=== PATIENT | female | born 1950 | race African-American/Black ===

== ENCOUNTER 2019-03-07 12:54 | Inpatient (IN) | payer MEDICARE, OTHER ==
[2019-03-07] MEDS ORDERED: MORPHINE SULFATE 10 MG/ML INJ IV ONE ×2 (13:37→16:17)
[2019-03-07] MEDS ORDERED: NORMAL SALINE 1000 ML 1,000 ML IV ONE ×2 (13:37→22:45)
[2019-03-07] MEDS ORDERED: ONDANSETRON HCL INJ/PF 4 MG/2 ML SDV IV ONE (13:37)
--- NOTE | 2019-03-07 13:43 | ER Document Report ---
ED Medical Screen (RME) - General Chief Complaint: High Blood Sugar Stated Complaint: BLOOD SUGAR ISSUES Time Seen by Provider: 03/07/19 13:33 Primary Care Provider: ALLEN OCONNOR MD [Primary Care Provider] - Follow up as needed Mode of Arrival: Wheelchair Information source: Patient, Relative TRAVEL OUTSIDE OF THE [place] IN LAST 30 DAYS: No - HPI Patient complains to provider of: ABDO PAIN, N/V, ELEVATED BGL Notes: 03/07/19 13:38 Patient here with family at the bedside. Patient is a type II diabetic. She takes glipizide. This morning she has been had nausea, vomiting, generalized abdominal pain. No diarrhea. She is been diaphoretic. Her blood sugars were elevated to 380s which is not normal for her. She denies any chest pain or shortness of breath. Exam Diaphoretic, no distress. Lung sounds clear and equal throughout. Heart sounds normal. No focal abdominal tenderness on limited triage abdominal exam. Plan CBC, CMP, venous gas, troponin, urine, EKG, saline lock, normal saline bolus, Zofran, morphine An initial examination was made on the patient as part of the triage process, and it was determined a more comprehensive evaluation was necessary. Initial labs were ordered and patient was transferred to another provider in the ED who assumed care and finished evaluation and plan. - Related Data Allergies/Adverse Reactions: No Known Allergies Allergy (Unverified 11/07/11 11:42) Past Medical History - Social History Frequency of alcohol use: None Drug Abuse: None - Past Medical History Cardiac Medical History: Reports: Hx Hypercholesterolemia, Hx Hypertension Denies: Hx Coronary Artery Disease, Hx Heart Attack Pulmonary Medical History: Denies: Hx Asthma, Hx Bronchitis, Hx COPD, Hx Pneumonia Neurological Medical History: Denies: Hx Cerebrovascular Accident, Hx Seizures Endocrine Medical History: Reports: Hx Diabetes Mellitus Type 2 Renal/ Medical History: Denies: Hx Peritoneal Dialysis Musculoskeltal Medical History: Denies Hx Arthritis Past Surgical History: Reports: Hx Tubal Ligation. Denies: Hx Hysterectomy - Immunizations Hx Diphtheria, Pertussis, Tetanus Vaccination: Yes Physical Exam - Vital signs Vitals: Temp Pulse Resp BP Pulse Ox 97.4 F 66 16 138/76 H 99 03/07/19 13:03 03/07/19 13:03 03/07/19 13:03 03/07/19 13:03 03/07/19 13:03 Course - Vital Signs Vital signs: Temp Pulse Resp BP Pulse Ox 97.4 F 66 16 138/76 H 99 03/07/19 13:03 03/07/19 13:03 03/07/19 13:03 03/07/19 13:03 03/07/19 13:03 Doctor's Discharge - Discharge Referrals: ALLEN OCONNOR MD [Primary Care Provider] - Follow up as needed
[2019-03-07 14:13] LABS: ABSOLUTE LYMPHOCYTES (AUTO) 1.1 10^3/uL (0.5-4.7); ABSOLUTE MONOCYTES (AUTO) 0.9 10^3/uL (0.1-1.4); ABSOLUTE NEUT (AUTO) 16.6 10^3/uL (1.7-8.2); BASOPHILS % (AUTO) 0.1 % (0-2); HEMATOCRIT 49.2 % (36.0-47.0); HEMOGLOBIN 15.9 g/dL (12.0-15.5); MEAN CORPUSCULAR HEMOGLOBIN 27.7 pg (27.0-33.4); MEAN CORPUSCULAR HGB CONC 32.3 g/dL (32.0-36.0); MEAN CORPUSCULAR VOLUME 86 fl (80-97); MONOCYTES % (AUTO) 4.6 % (3-13); RED BLOOD COUNT 5.73 10^6/uL (3.72-5.28); RED CELL DISTRIBUTION WIDTH 13.7 % (11.5-14.0); SEGMENTED NEUTROPHILS % (AUTO) 89.3 % (42-78); TOTAL CELLS COUNTED % (AUTO) 100 %; WHITE BLOOD COUNT 18.6 10^3/uL (4.0-10.5)
[2019-03-07 14:26] LABS: ALBUMIN 4.7 g/dL (3.5-5.0); ALKALINE PHOSPHATASE 212 U/L (38-126); ANION GAP 18 (5-19); BILIRUBIN,DIRECT 1.1 mg/dL (0.0-0.4); BILIRUBIN,TOTAL 1.3 mg/dL (0.2-1.3); BLOOD UREA NITROGEN 30 mg/dL (7-20); CALCIUM 10.6 mg/dL (8.4-10.2); CARBON DIOXIDE 21 mmol/L (22-30); CHLORIDE 103 mmol/L (98-107); POTASSIUM 4.7 mmol/L (3.6-5.0); SODIUM 141.9 mmol/L (137-145); TOTAL PROTEIN 8.4 g/dL (6.3-8.2)
[2019-03-07 14:33] LABS: PLATELET COUNT 314 10^3/uL (150-450)
[2019-03-07 15:09] LABS: ALANINE AMINOTRANSFERASE 1777 U/L (9-52); ASPARTATE AMINO TRANSFERASE 2318 U/L (14-36); LIPASE 30813.3 U/L (23-300)
[2019-03-07 15:10] LABS: GLUCOSE 439 mg/dL (75-110)
[2019-03-07 16:26] LABS: APPEARANCE,URINE CLOUDY; BILIRUBIN,URINE NEGATIVE (NEGATIVE); GLUCOSE, URINE >=500 mg/dL (NEGATIVE); KETONES,URINE NEGATIVE (NEGATIVE); LEUKOCYTE ESTERASE,URINE SMALL (NEGATIVE); NITRITE,URINE NEGATIVE (NEGATIVE); PROTEIN,URINE 100 mg/dL (NEGATIVE); URINE SPECIFIC GRAVITY 1.014; UROBILINOGEN,URINE NEGATIVE mg/dL (<2.0)
[2019-03-07 16:27] LABS: COLOR,URINE YELLOW
[2019-03-07 16:33] LABS: VENOUS BLOOD BASE EXCESS -7.6 mmol/L; VENOUS BLOOD HCO3 22.8 mmol/L (20-32)
[2019-03-07 16:38] LABS: VENOUS BLOOD PCO2 67.9 mmHg (35-63); VENOUS BLOOD PH 7.14 (7.30-7.42)
[2019-03-07] MEDS ORDERED: INSULIN REG, HUMAN 100 UNIT/ML 3 ML VIAL (PYX) IV ONE (16:45)
[2019-03-07] MEDS ORDERED: CEFTRIAXONE 1 GM/D5W RTU 1 GM/50 ML RTUPB IV ONE ×2 (16:49→19:00)
--- NOTE | 2019-03-07 18:04 | RADIOLOGY REPORT (SQ) ---
EXAM DESCRIPTION: U/S ABDOMEN LIMITED W/O DOP COMPLETED DATE/TIME: 03/07/2019 5:47 pm REASON FOR STUDY: RUQ pain, elevated lipase and LFTs COMPARISON: None. TECHNIQUE: Dynamic and static grayscale images acquired of the abdomen and recorded on PACS. Additio nal selected color Doppler and spectral images recorded. LIMITATIONS: None. FINDINGS: PANCREAS: No masses. Visualized pancreatic duct normal caliber. LIVER: No masses. Echotexture normal. LIVER VASCULATURE: Normal directional flow of the main portal vein and hepatic veins. GALLBLADDER: Nonshadowing gallstones versus moderate amount of endoluminal sludge. Increased gallbla dder wall thickness, 4-5 mm. No pericholecystic fluid. ULTRASOUND-DETECTED MCGUIRE'S SIGN: Negative. INTRAHEPATIC DUCTS AND COMMON DUCT: CBD and intrahepatic ducts normal caliber. No filling defects. INFERIOR VENA CAVA: Normal flow. AORTA: No aneurysm identified. RIGHT KIDNEY: Normal size. Normal echogenicity. No solid or suspicious masses. No hydronephros is. No calcifications. PERITONEAL AND RIGHT PLEURAL SPACE: No ascites or effusions. OTHER: No other significant findings. IMPRESSION: Nonshadowing gallstones versus moderate amount of endoluminal sludge. Increased gallbla dder wall thickness, 4-5 mm. Trace amount of fluid in Farrell's pouch. Consider surgical consultat ion. TECHNICAL DOCUMENTATION: JOB ID: [id number] [id number] 2010 [employer]- All Rights Reserved Reading location - IP/workstation name: [email or web address]
--- NOTE | 2019-03-07 18:26 | ER Document Report ---
ED General - General Chief Complaint: High Blood Sugar Stated Complaint: BLOOD SUGAR ISSUES Time Seen by Provider: 03/07/19 13:33 Primary Care Provider: ALLEN OCONNOR MD [Primary Care Provider] - Follow up as needed Mode of Arrival: Wheelchair Notes: Patient says her stomach has been hurting since early this morning. She is never had this before. Has been nauseated and today has vomited 4 times. No diarrhea. Has not noted any fever. No history of abdominal surgeries except for her tubes being tied. Does not drink alcohol. Patient is a [id number] diabetic on glipizide twice a day. Appears to be in pain. Received 5 mg of morphine when first arrived. TRAVEL OUTSIDE OF THE [place] IN LAST 30 DAYS: No - Related Data Allergies/Adverse Reactions: No Known Allergies Allergy (Unverified 11/07/11 11:42) Past Medical History - General Information source: Patient, Relative - Social History Smoking Status: Never Smoker Frequency of alcohol use: None Drug Abuse: None Family History: Reviewed & Not Pertinent Patient has suicidal ideation: No Patient has homicidal ideation: No - Past Medical History Cardiac Medical History: Reports: Hx Hypercholesterolemia, Hx Hypertension Endocrine Medical History: Reports: Hx Diabetes Mellitus Type 2 GI Medical History: Denies: Hx Pancreatitis Musculoskeletal Medical History: Denies Hx Arthritis Past Surgical History: Reports: Hx Tubal Ligation. Denies: Hx Hysterectomy - Immunizations Hx Diphtheria, Pertussis, Tetanus Vaccination: Yes Review of Systems - Review of Systems Notes: REVIEW OF SYSTEMS: CONSTITUTIONAL : Denies fever. EENT: Denies eye, ear, nose or mouth or throat pain or other symptoms. CARDIOVASCULAR: Denies chest pain. RESPIRATORY: Denies cough, chest congestion, or shortness of breath. GASTROINTESTINAL: See HPI. GENITOURINARY: Denies difficulty or painful urinating, urinary frequency, blood in urine. MUSCULOSKELETAL: Denies back or neck pain. Denies joint pain or swelling. SKIN: Denies rash or skin lesions. NEUROLOGICAL: Denies LOC or altered mental status. Denies headache. Denies sensory loss or motor deficits. ALL OTHER SYSTEMS REVIEWED AND NEGATIVE. Physical Exam - Vital signs Vitals: Temp Pulse Resp BP Pulse Ox 97.4 F 66 16 138/76 H 99 03/07/19 13:03 03/07/19 13:03/07/19 13:03/07/19 13:03 03/07/19 13:03 Interpretation: Normal Notes: PHYSICAL EXAMINATION: GENERAL: Appears to be in pain. HEAD: Atraumatic, normocephalic. EYES: Pupils equal round and reactive to light, extraocular movements intact. ENT: oropharynx clear without exudates. Moist mucous membranes. NECK: Normal range of motion, supple. LUNGS: Breath sounds clear and equal bilaterally. HEART: Regular rate and rhythm without murmurs. ABDOMEN: Extremely tender in the epigastrium and right upper quadrant of the abdomen. Some guarding to press in that area. No rebound. BACK: No tenderness throughout entire back. EXTREMITIES: Normal range of motion without pain. NEUROLOGICAL: Normal speech, normal gait. Normal sensory, motor, and reflex exams. Awake, alert, and oriented x3. Cranial nerves normal. PSYCH: Normal mood, normal affect. SKIN: Warm, dry, no rashes. Course - Re-evaluation Re-evalutation: 03/07/19 18:28 Lab results show a white count of 18,000. Lipase 30,000. LFTs elevated, but bilirubin only 1.3. Venous pH 7. 1 4 with PCO2 of 67. Patient was given 5 units of insulin IV. Pain medications were ordered. Rocephin 1 g IV was ordered. Spoke with surgeon on-call, Dr. Martin, who said that he would be willing to consult on the patient if medicine will admit her. I then spoke to , 1 of her hospitalist, who will admit the patient to ICU. 03/07/19 18:31 - Vital Signs Vital signs: Temp Pulse Resp BP Pulse Ox 97.4 F 66 16 138/76 H 99 03/07/19 13:03 03/07/19 13:03 03/07/19 13:03 03/07/19 13:03 03/07/19 13:03 - Laboratory Result Diagrams: 03/07/19 13:52 03/07/19 13:52 Laboratory results interpreted by me: 03/07/19 03/07/19 03/07/19 13:52 13:52 13:55 WBC 18.6 H RBC 5.73 H Hgb 15.9 H Hct 49.2 H Seg Neutrophils % 89.3 H Lymphocytes % 6.0 L Absolute Neutrophils 16.6 H VBG pH VBG pCO2 Carbon Dioxide 21 L BUN 30 H Creatinine 1.37 H Est GFR ( Amer) 47 L Est GFR (Non-Af Amer) 38 L Glucose 439 H* POC Glucose 378 H Calcium 10.6 H Direct Bilirubin 1.1 H AST 2318 H ALT 1777 H Alkaline Phosphatase 212 H Total Protein 8.4 H Lipase 62594.3 H Urine Protein Urine Glucose (UA) Urine Blood Ur Leukocyte Esterase 03/07/19 03/07/19 15:55 16:22 WBC RBC Hgb Hct Seg Neutrophils % Lymphocytes % Absolute Neutrophils VBG pH 7.14 L* VBG pCO2 67.9 H* Carbon Dioxide BUN Creatinine Est GFR ( Amer) Est GFR (Non-Af Amer) Glucose POC Glucose Calcium Direct Bilirubin AST ALT Alkaline Phosphatase Total Protein Lipase Urine Protein 100 H Urine Glucose (UA) >=500 H Urine Blood SMALL H Ur Leukocyte Esterase SMALL H Discharge - Discharge Clinical Impression: Pancreatitis, Gallbladder disease, Type 2 diabetes mellitus Condition: Stable Disposition: ADMITTED INPATIENT Admitting Provider: Kim (Hospitalist) Unit Admitted: ICU Referrals: ALLEN OCONNOR MD [Primary Care Provider] - Follow up as needed
[2019-03-07] MEDS ORDERED: NORMAL SALINE 1000 ML 1,000 ML IV PRN (18:42)
[2019-03-07] MEDS ORDERED: ACETAMINOPHEN 325 MG TABLET PO PRN (18:42)
[2019-03-07] MEDS ORDERED: ONDANSETRON HCL INJ/PF 4 MG/2 ML SDV IV PRN (18:42)
--- NOTE | 2019-03-07 18:48 | PDOC CONSULTATION ---
Consultation Consult Date: 03/07/19 Attending physician:: REYMUNDO SALAZAR Consult reason:: pancreatitis History of Present Illness Admission Date/PCP: ALLEN OCONNOR History of Present Illness: MALINI QUEVEDO is a 68 year old female Patient says her stomach has been hurting since early this morning. She is never had this before. Does not drink alcohol. Has been nauseated and today has vomited 4 times. No diarrhea. Has not noted any fever. No history of abdominal surgeries except for her tubes being tied. Patient is a bsc-vqtxgmq-[id number] diabetic on glipizide twice a day. Past Medical History Cardiac Medical History: Reports: Hyperlipidema, Hypertension Denies: Coronary Artery Disease, Myocardial Infarction Pulmonary Medical History: Denies: Asthma, Bronchitis, Chronic Obstructive Pulmonary Disease (COPD), Pneumonia Neurological Medical History: Denies: Seizures Endocrine Medical History: Reports: Diabetes Mellitus Type 2 Musculoskeltal Medical History: Denies: Arthritis Hematology: Denies: Anemia Past Surgical History Past Surgical History: Reports: Tubal Ligation Denies: Hysterectomy Social History Smoking Status: Never Smoker Family History Parental Family History Reviewed: No Children Family History Reviewed: NA Sibling(s) Family History Reviewed.: NA Medication/Allergy Home Medications: Atenolol-Chlorthal 50-25 Tb 11/07/11 Metformin HCl 11/07/11 Pravastatin Sodium [Pravachol] 11/07/11 Allergies/Adverse Reactions: No Known Allergies Allergy (Unverified 11/07/11 11:42) Review of Systems Constitutional: ABSENT: chills, fever(s), headache(s), weight gain, weight loss Eyes: ABSENT: visual disturbances Ears: ABSENT: hearing changes Nose, Mouth, and Throat: ABSENT: as per HPI, headache(s), mouth pain, sore throat, vertigo, other Breasts: PRESENT: other - no masses Cardiovascular: PRESENT: other - no chest pain, Respiratory: ABSENT: cough, hemoptysis Gastrointestinal: PRESENT: other - marked tenderness in epigastrium, without radiation Genitourinary: ABSENT: dysuria, hematuria Musculoskeletal: ABSENT: joint swelling Integumentary: ABSENT: rash, wounds Neurological: ABSENT: abnormal gait, abnormal speech, confusion, dizziness, focal weakness, syncope Psychiatric: ABSENT: anxiety, depression, homidical ideation, suicidal ideation Endocrine: PRESENT: other - no cold or heat intolerance, type 2 diabetes Physical Exam Vital Signs: Temp Pulse Resp BP Pulse Ox 97.4 F 66 16 138/76 H 99 03/07/19 13:03 03/07/19 13:03 03/07/19 13:03 03/07/19 13:03 03/07/19 13:03 Intake & Output 03/06/19 03/07/19 03/08/19 06:59 06:59 06:59 Weight 73.6 kg General appearance: PRESENT: mild distress Head exam: PRESENT: atraumatic Eye exam: PRESENT: EOMI Ear exam: PRESENT: normal external ear exam Mouth exam: PRESENT: dry mucosa, moist Neck exam: PRESENT: full ROM Respiratory exam: PRESENT: clear to auscultation marce Cardiovascular exam: PRESENT: RRR Pulses: PRESENT: normal radial pulses, normal femoral pulses Vascular exam: PRESENT: normal capillary refill GI/Abdominal exam: PRESENT: tenderness - mid abd, epigastrium Rectal exam: PRESENT: deferred Extremities exam: PRESENT: full ROM Musculoskeletal exam: PRESENT: full ROM Neurological exam: PRESENT: alert, awake, oriented to person, oriented to place, oriented to time Psychiatric exam: PRESENT: anxious Skin exam: PRESENT: dry Results Laboratory Results: 03/07/19 13:52 03/07/19 13:52 03/07/19 03/07/19 03/07/19 13:52 13:52 15:11 WBC 18.6 H RBC 5.73 H Hgb 15.9 H Hct 49.2 H MCV 86 MCH 27.7 MCHC 32.3 RDW 13.7 Plt Count 314 Seg Neutrophils % 89.3 H Lymphocytes % 6.0 L Monocytes % 4.6 Eosinophils % 0.0 Basophils % 0.1 Absolute Neutrophils 16.6 H Absolute Lymphocytes 1.1 Absolute Monocytes 0.9 Absolute Eosinophils 0.0 Absolute Basophils 0.0 VBG pH Cancelled VBG pCO2 Cancelled VBG HCO3 Cancelled VBG Base Excess Cancelled Sodium 141.9 Potassium 4.7 Chloride 103 Carbon Dioxide 21 L Anion Gap 18 BUN 30 H Creatinine 1.37 H Est GFR ( Amer) 47 L Est GFR (Non-Af Amer) 38 L Glucose 439 H* Calcium 10.6 H Total Bilirubin 1.3 AST 2318 H ALT 1777 H Alkaline Phosphatase 212 H Total Protein 8.4 H Albumin 4.7 Lipase 06943.3 H Urine Color Urine Appearance Urine pH Ur Specific [place] Urine Protein Urine Glucose (UA) Urine Ketones Urine Blood Urine Nitrite Ur Leukocyte Esterase Urine WBC (Auto) Urine RBC (Auto) 03/07/19 03/07/19 15:55 16:22 WBC RBC Hgb Hct MCV MCH MCHC RDW Plt Count Seg Neutrophils % Lymphocytes % Monocytes % Eosinophils % Basophils % Absolute Neutrophils Absolute Lymphocytes Absolute Monocytes Absolute Eosinophils Absolute Basophils VBG pH 7.14 L* VBG pCO2 67.9 H* VBG HCO3 22.8 VBG Base Excess -7.6 Sodium Potassium Chloride Carbon Dioxide Anion Gap BUN Creatinine Est GFR ( Amer) Est GFR (Non-Af Amer) Glucose Calcium Total Bilirubin AST ALT Alkaline Phosphatase Total Protein Albumin Lipase Urine Color YELLOW Urine Appearance CLOUDY Urine pH 5.0 Ur Specific [place] 1.014 Urine Protein 100 H Urine Glucose (UA) >=500 H Urine Ketones NEGATIVE Urine Blood SMALL H Urine Nitrite NEGATIVE Ur Leukocyte Esterase SMALL H Urine WBC (Auto) 19 Urine RBC (Auto) 2 03/07/19 13:52 Troponin I < 0.012 Impressions: Abdomen Ultrasound 03/07/19 16:17 IMPRESSION: Nonshadowing gallstones versus moderate amount of endoluminal sludge. Increased gallbladder wall thickness, 4-5 mm. Trace amount of fluid in Farrell's pouch. Consider surgical consultation. 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 - Plan Summary Plan Summary: 68 y/o female with known gallstones, type 2 diabetes on glipizide, presents iwth acute onset epigastrium pain, nausea, vomiting ultrasound + for gallstones elevated lft's elevated lipase acidotic plan admit per medicine to icu iv resuscitation, control of blood glucose. surgery to follow.
[2019-03-07] MEDS ORDERED: DEXTROSE 40% GEL 15 GM TUBE PO PRN ×2 (18:50)
[2019-03-07] MEDS ORDERED: DEXTROSE 50%-WATER 25 GM/50 ML DISP.SYRIN IV PRN ×2 (18:50)
[2019-03-07] MEDS ORDERED: GLUCAGON,HUMAN RECOMB 1 MG INJ IM PRN (18:50)
[2019-03-07] MEDS ORDERED: MORPHINE SULFATE 10 MG/ML INJ IV PRN (18:51)
--- NOTE | 2019-03-07 18:52 | EKG REPORT ---
SEVERITY:- ABNORMAL ECG - SINUS RHYTHM LEFT ATRIAL ABNORMALITY : Confirmed by: Tod Wilson 07-Mar-2019 18:51:36
[2019-03-07] MEDS ORDERED: ERTAPENEM SODIUM INJ 1 GM VIAL IV SCH (19:00)
--- NOTE | 2019-03-07 19:05 | PDOC H&P ---
History of Present Illness Admission Date/PCP: 03/07/19 18:51 ALLEN OCONNOR Patient complains of: Abdominal pain associated with nausea and vomiting from this morning History of Present Illness: MALINI QUEVEDO is a 68 year old female with history of diabetes mellitus type 2, hypertension, hyperlipidemia came to the emergency room with complaints of sudden onset of abdominal pain associated with nausea and vomiting's from this morning. Patient woke up around 7 AM with sudden onset of abdominal pain nausea and vomitings took some water right went back to bed pain is persisting associated with vomiting's 4 times bilious vomiting she called her daughter alex ound 9 AM day and thereafter to the hospital for further evaluation. Patient is complaining of chills Reiger's denies any fever. Had a bowel movement this morning. Denies any cough cold or chest pains. Denies any shortness of breath. Denies any rashes. Denies any headaches dizziness or lightheadedness. Abdominal pain is 10 x 10 at the time of presentation. no Aggravating factors no relieving factors. Past Medical History Cardiac Medical History: Reports: Hyperlipidema, Hypertension Denies: Coronary Artery Disease, Myocardial Infarction Pulmonary Medical History: Denies: Asthma, Bronchitis, Chronic Obstructive Pulmonary Disease (COPD), Pneumonia Neurological Medical History: Denies: Seizures Endocrine Medical History: Reports: Diabetes Mellitus Type 2 Musculoskeltal Medical History: Denies: Arthritis Hematology: Denies: Anemia Past Surgical History Past Surgical History: Reports: Tubal Ligation Denies: Hysterectomy Social History Smoking Status: Never Smoker - Advance Directive Resuscitation Status: Full Code Family History Family History: Reviewed & Not Pertinent Parental Family History Reviewed: Yes - Family history of hypertension and diabetes mellitus Children Family History Reviewed: Yes Sibling(s) Family History Reviewed.: Yes Medication/Allergy Home Medications: Atenolol-Chlorthal 50-25 Tb 11/07/11 Metformin HCl 11/07/11 Pravastatin Sodium [Pravachol] 11/07/11 Allergies/Adverse Reactions: No Known Allergies Allergy (Unverified 11/07/11 11:42) Review of Systems Constitutional: PRESENT: chills, fatigue, weakness, other - Reiger's. ABSENT: fever(s), headache(s) Eyes: ABSENT: visual disturbances Ears: ABSENT: hearing changes Respiratory: ABSENT: cough, hemoptysis Gastrointestinal: PRESENT: abdominal pain, nausea, vomiting, other - Pain especially in the right upper quadrant and stomach area Genitourinary: ABSENT: dysuria, hematuria Neurological: ABSENT: abnormal gait, abnormal speech, confusion, dizziness, focal weakness, syncope Psychiatric: ABSENT: anxiety, depression, homidical ideation, suicidal ideation Physical Exam Vital Signs: Temp Pulse Resp BP Pulse Ox 97.4 F 66 16 138/76 H 99 03/07/19 13:03 03/07/19 13:03 03/07/19 13:03 03/07/19 13:03 03/07/19 13:03 Intake & Output 03/06/19 03/07/19 03/08/19 06:59 06:59 06:59 Weight 73.6 kg General appearance: PRESENT: obese, severe distress Head exam: PRESENT: atraumatic Eye exam: PRESENT: PERRLA Mouth exam: PRESENT: dry mucosa Teeth exam: PRESENT: poor dentation Neck exam: ABSENT: carotid bruit, JVD, lymphadenopathy, thyromegaly Respiratory exam: PRESENT: clear to auscultation marce. ABSENT: rales, rhonchi, wheezes Cardiovascular exam: PRESENT: tachycardia GI/Abdominal exam: PRESENT: other - On examination patient is complaining of pain on drip upper quadrant on gentle palpation and is complaining of severe pain on gentle palpation in the epigastric area. Sounds are sluggish. Rectal exam: PRESENT: deferred Extremities exam: PRESENT: full ROM. ABSENT: calf tenderness, clubbing, pedal edema Neurological exam: PRESENT: alert, awake, oriented to person, oriented to place, oriented to time, oriented to situation, CN II-XII grossly intact. ABSENT: motor sensory deficit Psychiatric exam: PRESENT: appropriate affect, normal mood. ABSENT: homicidal ideation, suicidal ideation Results Laboratory Results: 03/07/19 13:52 03/07/19 13:52 03/07/19 03/07/19 03/07/19 13:52 13:52 15:11 WBC 18.6 H RBC 5.73 H Hgb 15.9 H Hct 49.2 H MCV 86 MCH 27.7 MCHC 32.3 RDW 13.7 Plt Count 314 Seg Neutrophils % 89.3 H Lymphocytes % 6.0 L Monocytes % 4.6 Eosinophils % 0.0 Basophils % 0.1 Absolute Neutrophils 16.6 H Absolute Lymphocytes 1.1 Absolute Monocytes 0.9 Absolute Eosinophils 0.0 Absolute Basophils 0.0 VBG pH Cancelled VBG pCO2 Cancelled VBG HCO3 Cancelled VBG Base Excess Cancelled Sodium 141.9 Potassium 4.7 Chloride 103 Carbon Dioxide 21 L Anion Gap 18 BUN 30 H Creatinine 1.37 H Est GFR ( Amer) 47 L Est GFR (Non-Af Amer) 38 L Glucose 439 H* Calcium 10.6 H Total Bilirubin 1.3 AST 2318 H ALT 1777 H Alkaline Phosphatase 212 H Total Protein 8.4 H Albumin 4.7 Lipase 94213.3 H Urine Color Urine Appearance Urine pH Ur Specific [place] Urine Protein Urine Glucose (UA) Urine Ketones Urine Blood Urine Nitrite Ur Leukocyte Esterase Urine WBC (Auto) Urine RBC (Auto) 03/07/19 03/07/19 15:55 16:22 WBC RBC Hgb Hct MCV MCH MCHC RDW Plt Count Seg Neutrophils % Lymphocytes % Monocytes % Eosinophils % Basophils % Absolute Neutrophils Absolute Lymphocytes Absolute Monocytes Absolute Eosinophils Absolute Basophils VBG pH 7.14 L* VBG pCO2 67.9 H* VBG HCO3 22.8 VBG Base Excess -7.6 Sodium Potassium Chloride Carbon Dioxide Anion Gap BUN Creatinine Est GFR ( Amer) Est GFR (Non-Af Amer) Glucose Calcium Total Bilirubin AST ALT Alkaline Phosphatase Total Protein Albumin Lipase Urine Color YELLOW Urine Appearance CLOUDY Urine pH 5.0 Ur Specific [place] 1.014 Urine Protein 100 H Urine Glucose (UA) >=500 H Urine Ketones NEGATIVE Urine Blood SMALL H Urine Nitrite NEGATIVE Ur Leukocyte Esterase SMALL H Urine WBC (Auto) 19 Urine RBC (Auto) 2 03/07/19 13:52 Troponin I < 0.012 Impressions: Abdomen Ultrasound 03/07/19 16:17 IMPRESSION: Nonshadowing gallstones versus moderate amount of endoluminal sludge. Increased gallbladder wall thickness, 4-5 mm. Trace amount of fluid in Farrell's pouch. Consider surgical consultation. Assessment and Plan - Diagnosis (1) Gallbladder disease Is this a current diagnosis for this admission?: Yes Plan: 03/07/2019-patient is going to be admitted to the ICU for gallbladder disease. She is going to be n.p.o. Surgical consult was done. Blood cultures urine cultures are requested. Started on Invanz 1 g IV daily. IV morphine 2 mg every 4 hours as needed initiated. GI prophylaxis was started. DVT prophylaxis on hold because of possible surgery. Start an IV Zofran 4 mg every 6 hours as needed for nausea vomiting's. On oxygen 2 L nasal cannula. To do the ABG. Chest x-ray and CT abdomen and pelvis with contrast was requested. CODE STATUS is full code. His WBC count is 18,000 with sweats chills and Reiger's. Started on antibiotic therapy septic work-up was requested. (2) Pancreatitis Qualifiers: Chronicity: acute Pancreatitis type: biliary Acute pancreatitis complication: unspecified Qualified Code(s): K85.10 - Biliary acute pancreatitis without necrosis or infection Is this a current diagnosis for this admission?: Yes Plan: 03/07/2019-patient came in with severe abdominal pain especially in the epigastric region denies any radiation to the back lipase is more than 30,000. She has also elevated LFTs. u/s of the gallbladder was done which indicates thickening of the gallbladder wall and gallstones. Surgical consult was requested plan to do the CT abdomen pelvis IV contrast. Chest x-ray was requested. to repeat the lipase levels tomorrow morning. (3) Type 2 diabetes mellitus Qualifiers: Diabetes mellitus [facility] insulin use: with terminal gauger supervisor use Diabetes mellitus complication status: without complication Qualified Code(s): E11.9 - Type 2 diabetes mellitus without complications; Z79.4 - terminal gauger supervisor (current) use of insulin Is this a current diagnosis for this admission?: No Plan: 03/07/2019-patient has history of type 2 diabetes mellitus. Taking glipizide at home. She is used to take metformin but she is not taking it anymore. To check blood sugars every 6 hours with prior insulin sliding scale every 6 hours. Hemoglobin A1c in the morning. (4) HTN (hypertension) Is this a current diagnosis for this admission?: No Plan: 03/07/2019-patient has history of hypertension blood pressure is 138/70. Patient is take lisinopril at home which was on hold at this time. (5) Acidosis Is this a current diagnosis for this admission?: Yes Plan: 03/07/2019-80 VBG was done in the emergency room pH is 7.14/PCO2 67. Acidosis may be secondary to uncontrolled diabetes mellitus. Or may be secondary to pain. ABG was requested, chest x-ray was requested, started on oxygen 2 L nasal cannula.
[2019-03-07] MEDS ORDERED: CEFTRIAXONE 1 GM/D5W RTU 1 GM/50 ML RTUPB IV SCH (20:00)
[2019-03-07 20:10] LABS: CREATINE KINASE MB 0.78 ng/mL (<4.55)
[2019-03-07 20:13] LABS: TROPONIN I < 0.012 ng/mL
--- NOTE | 2019-03-07 20:21 | RADIOLOGY REPORT (SQ) ---
EXAM DESCRIPTION: XR CHEST 1 VIEW COMPLETED DATE/TME: 03/07/2019 00:00 CLINICAL HISTORY: resp distress COMPARISON: None FINDINGS: Cardiac silhouette is within normal limits. Linear opacities at the lower lungs may represent scar versus subsegmental atelectasis. EKG leads project over the chest. There is no focal parenchymal or pleural disease. There is no acute osseous process visualized. IMPRESSION: Linear opacities at the lower lungs may represent scar versus subsegmental atelectasis.
--- NOTE | 2019-03-07 20:27 | RADIOLOGY REPORT (SQ) ---
EXAM DESCRIPTION: CT ABDOMEN PELVIS WITH IV CONTRAST COMPLETED DATE/TME: 03/07/2019 00:00 CLINICAL HISTORY: abd pain COMPARISON: None Available TECHNIQUE: Contiguous axial images of the abdomen and pelvis were obtained followed by reconstruction images. This exam was performed according to our departmental dose-optimization program, which includes automated exposure control, adjustment of the mA and/or kV according to patient size and/or use of iterative reconstruction technique. FINDINGS: Enlarged pancreas with mild stranding of the adjacent fat and fluid at the anterior pararenal space bilaterally compatible with acute pancreatitis changes. Focal fluid collection inferior to the pancreas measuring approximately 4.3 cm may represent a pseudocyst. There is atherosclerosis. There is free fluid in the pelvis. Calcifications within the pelvis may represent phleboliths. Linear opacities within the lungs may represent scar versus subsegmental atelectasis. There are gallstones within the gallbladder. The gallbladder is partially contracted. Common bile duct is not dilated. No discrete calcification is noted within the common bile duct. There is a small right renal cyst. The liver, spleen and kidneys are within normal limits. There is no hydronephrosis or renal stones. Adrenal glands are within normal limits. Aorta is of normal caliber and tapering. There There is no bowel obstruction. The appendix is within normal limits. There is no pericecal inflammation. IMPRESSION: Findings compatible with acute pancreatitis. Cholelithiasis.
[2019-03-07] MEDS: PANTOPRAZOLE SODIUM 40 MG VIAL IV SCH (20:42)
[2019-03-07 21:30] LABS: ARTERIAL BLOOD BASE EXCESS -9.4 mmol/L; ARTERIAL BLOOD H2CO3 1.07 mmol/L (1.05-1.35); ARTERIAL BLOOD HCO3 16.3 mmol/L (20-24); ARTERIAL BLOOD O2 SATURATION 94.3 % (94-98); ARTERIAL BLOOD PCO2 35.5 mmHg (35-45); ARTERIAL BLOOD PH 7.28 (7.35-7.45); ARTERIAL BLOOD PO2 78.6 mmHg (80-100); ARTERIAL BLOOD TOTAL CO2 17.4 mmol/L (21-25)
[2019-03-07 21:33] LABS: ARTERIAL BLOOD FIO2 21%
[2019-03-07] MEDS ORDERED: MORPHINE SULFATE 10 MG/ML INJ ONE (22:32)
[2019-03-07] MEDS ORDERED: INSULIN REG, HUMAN 100 UNIT/ML 3 ML VIAL SUBCUT ONE (22:45)
[2019-03-07] MEDS: MORPHINE SULFATE 10 MG/ML INJ IV PRN (22:58)
[2019-03-07] MEDS ORDERED: INSULIN REG, HUMAN 100 UNIT/ML 3 ML VIAL (PYX) ONE (23:05)
[2019-03-08] MEDS ORDERED: INSULIN REG, HUMAN 100 UNIT/ML 3 ML VIAL (PYX) SUBCUT SCH
[2019-03-08] MEDS: ERTAPENEM SODIUM 1 GM in NORMAL SALINE 50 ML IV SCH ×2 (00:04→23:10)
[2019-03-08] MEDS ORDERED: INSULIN REG, HUMAN 100 UNIT/ML 3 ML VIAL (PYX) SUBCUT ONE (01:00)
[2019-03-08 01:57] LABS: CREATINE KINASE MB 1.34 ng/mL (<4.55); TROPONIN I 0.034 ng/mL
[2019-03-08] MEDS: METOPROLOL TARTRATE PF/INJ 5 MG/5 ML SDV IV SCH ×2 (03:09→11:24)
--- NOTE | 2019-03-08 06:04 | PDOC PROGRESS REPORT ---
Subjective Progress Note for:: 03/08/19 Subjective:: feels a bit better less abd pain Reason For Visit: BLOOD SUGAR ISSUES Physical Exam Vital Signs: Temp Pulse Resp BP Pulse Ox 96.6 F L 155 H 26 H 130/78 H 96 03/07/19 21:50 03/07/19 21:50 03/08/19 02:10 03/08/19 02:10 03/08/19 02:10 Intake & Output 03/06/19 03/07/19 03/08/19 06:59 06:59 06:59 Intake Total 1100 Output Total 550 Balance 550 Weight 72.2 kg General appearance: PRESENT: no acute distress Head exam: PRESENT: normocephalic Eye exam: PRESENT: EOMI Mouth exam: PRESENT: moist Neck exam: PRESENT: full ROM Respiratory exam: PRESENT: clear to auscultation marce Cardiovascular exam: PRESENT: RRR, tachycardia Pulses: PRESENT: normal radial pulses, normal femoral pulses Vascular exam: PRESENT: normal capillary refill GI/Abdominal exam: PRESENT: hypoactive bowel sounds Rectal exam: PRESENT: deferred Extremities exam: PRESENT: +1 edema Musculoskeletal exam: PRESENT: full ROM Neurological exam: PRESENT: alert, awake, oriented to person Psychiatric exam: PRESENT: appropriate affect Results Laboratory Results: 03/07/19 13:52 03/07/19 13:52 03/07/19 03/07/19 03/07/19 13:52 13:52 15:11 WBC 18.6 H RBC 5.73 H Hgb 15.9 H Hct 49.2 H MCV 86 MCH 27.7 MCHC 32.3 RDW 13.7 Plt Count 314 Seg Neutrophils % 89.3 H Lymphocytes % 6.0 L Monocytes % 4.6 Eosinophils % 0.0 Basophils % 0.1 Absolute Neutrophils 16.6 H Absolute Lymphocytes 1.1 Absolute Monocytes 0.9 Absolute Eosinophils 0.0 Absolute Basophils 0.0 Carbonic Acid HCO3/H2CO3 Ratio ABG pH ABG pCO2 ABG pO2 ABG HCO3 ABG O2 Saturation ABG Base Excess VBG pH Cancelled VBG pCO2 Cancelled VBG HCO3 Cancelled VBG Base Excess Cancelled FiO2 Sodium 141.9 Potassium 4.7 Chloride 103 Carbon Dioxide 21 L Anion Gap 18 BUN 30 H Creatinine 1.37 H Est GFR ( Amer) 47 L Est GFR (Non-Af Amer) 38 L Glucose 439 H* Lactic Acid Calcium 10.6 H Total Bilirubin 1.3 AST 2318 H ALT 1777 H Alkaline Phosphatase 212 H Total Protein 8.4 H Albumin 4.7 Lipase 91911.3 H Urine Color Urine Appearance Urine pH Ur Specific [place] Urine Protein Urine Glucose (UA) Urine Ketones Urine Blood Urine Nitrite Ur Leukocyte Esterase Urine WBC (Auto) Urine RBC (Auto) 03/07/19 03/07/19 03/07/19 15:55 16:22 19:19 WBC RBC Hgb Hct MCV MCH MCHC RDW Plt Count Seg Neutrophils % Lymphocytes % Monocytes % Eosinophils % Basophils % Absolute Neutrophils Absolute Lymphocytes Absolute Monocytes Absolute Eosinophils Absolute Basophils Carbonic Acid HCO3/H2CO3 Ratio ABG pH ABG pCO2 ABG pO2 ABG HCO3 ABG O2 Saturation ABG Base Excess VBG pH 7.14 L* VBG pCO2 67.9 H* VBG HCO3 22.8 VBG Base Excess -7.6 FiO2 Sodium Potassium Chloride Carbon Dioxide Anion Gap BUN Creatinine Est GFR ( Amer) Est GFR (Non-Af Amer) Glucose Lactic Acid 7.0 H Calcium Total Bilirubin AST ALT Alkaline Phosphatase Total Protein Albumin Lipase Urine Color YELLOW Urine Appearance CLOUDY Urine pH 5.0 Ur Specific [place] 1.014 Urine Protein 100 H Urine Glucose (UA) >=500 H Urine Ketones NEGATIVE Urine Blood SMALL H Urine Nitrite NEGATIVE Ur Leukocyte Esterase SMALL H Urine WBC (Auto) 19 Urine RBC (Auto) 2 03/07/19 21:19 WBC RBC Hgb Hct MCV MCH MCHC RDW Plt Count Seg Neutrophils % Lymphocytes % Monocytes % Eosinophils % Basophils % Absolute Neutrophils Absolute Lymphocytes Absolute Monocytes Absolute Eosinophils Absolute Basophils Carbonic Acid 1.07 HCO3/H2CO3 Ratio 15:1 ABG pH 7.28 L ABG pCO2 35.5 ABG pO2 78.6 L ABG HCO3 16.3 L ABG O2 Saturation 94.3 ABG Base Excess -9.4 VBG pH VBG pCO2 VBG HCO3 VBG Base Excess FiO2 21% Sodium Potassium Chloride Carbon Dioxide Anion Gap BUN Creatinine Est GFR ( Amer) Est GFR (Non-Af Amer) Glucose Lactic Acid Calcium Total Bilirubin AST ALT Alkaline Phosphatase Total Protein Albumin Lipase Urine Color Urine Appearance Urine pH Ur Specific [place] Urine Protein Urine Glucose (UA) Urine Ketones Urine Blood Urine Nitrite Ur Leukocyte Esterase Urine WBC (Auto) Urine RBC (Auto) 03/07/19 03/07/19 03/07/19 13:52 19:19 19:19 Creatine Kinase 87 CK-MB (CK-2) 0.78 Troponin I < 0.012 < 0.012 03/08/19 03/08/19 01:22 01:22 Creatine Kinase 94 CK-MB (CK-2) 1.34 Troponin I 0.034 Impressions: Abdomen/Pelvis CT 03/07/19 00:00 IMPRESSION: Findings compatible with acute pancreatitis. Cholelithiasis. Chest X-Ray 03/07/19 00:00 IMPRESSION: Linear opacities at the lower lungs may represent scar versus subsegmental atelectasis. Abdomen Ultrasound 03/07/19 16:17 IMPRESSION: Nonshadowing gallstones versus moderate amount of endoluminal sludge. Increased gallbladder wall thickness, 4-5 mm. Trace amount of fluid in Farrell's pouch. Consider surgical consultation. Assessment & Plan - Diagnosis (1) Gallbladder disease Is this a current diagnosis for this admission?: Yes (2) Pancreatitis Qualifiers: Chronicity: acute Pancreatitis type: biliary Acute pancreatitis complicat ion: unspecified Qualified Code(s): K85.10 - Biliary acute pancreatitis without necrosis or infection Is this a current diagnosis for this admission?: Yes (3) Type 2 diabetes mellitus Qualifiers: Diabetes mellitus [facility] insulin use: with fci use Diabetes mellitus complication status: without complication Qualified Code(s): E11.9 - Type 2 diabetes mellitus without complications; Z79.4 - half-way (current) use of insulin Is this a current diagnosis for this admission?: No - Plan Summary Plan Summary: somewhat improved since admission last pm has received iv hydration 'ns at 125cc/hr and 1 liter bolus ns has been voiding overnight '300cc and 600cc op no sanam received metoprolol for her tachycardia last pm this am less pain plan cont iv hydration awaiting am labs ok to have ice chips.
[2019-03-08] MEDS: INSULIN REG, HUMAN 100 UNIT/ML 3 ML VIAL (PYX) SUBCUT SCH ×4 (07:14→23:14)
[2019-03-08] MEDS: MORPHINE SULFATE 10 MG/ML INJ IV PRN ×4 (07:20→22:18)
[2019-03-08 09:36] LABS: HEMATOCRIT 46.8 % (36.0-47.0); HEMOGLOBIN 15.5 g/dL (12.0-15.5); MEAN CORPUSCULAR HEMOGLOBIN 28.4 pg (27.0-33.4); MEAN CORPUSCULAR HGB CONC 33.2 g/dL (32.0-36.0); MEAN CORPUSCULAR VOLUME 86 fl (80-97); PLATELET COUNT 246 10^3/uL (150-450); RED BLOOD COUNT 5.47 10^6/uL (3.72-5.28); WHITE BLOOD COUNT 16.9 10^3/uL (4.0-10.5)
[2019-03-08 09:41] LABS: INTERNATIONAL RATION (INR) 1.05; PROTHROMBIN TIME 14.3 SEC (11.4-15.4)
[2019-03-08 09:49] LABS: ALBUMIN 3.5 g/dL (3.5-5.0); ALKALINE PHOSPHATASE 159 U/L (38-126); ANION GAP 11 (5-19); ASPARTATE AMINO TRANSFERASE 712 U/L (14-36); BILIRUBIN,DIRECT 0.4 mg/dL (0.0-0.4); BILIRUBIN,TOTAL 0.5 mg/dL (0.2-1.3); BLOOD UREA NITROGEN 37 mg/dL (7-20); CALCIUM 8.2 mg/dL (8.4-10.2); CARBON DIOXIDE 19 mmol/L (22-30); CHLORIDE 115 mmol/L (98-107); CREATINE KINASE 104 U/L (30-135); GLUCOSE 292 mg/dL (75-110); SODIUM 145.2 mmol/L (137-145); TOTAL PROTEIN 6.8 g/dL (6.3-8.2)
[2019-03-08] MEDS ORDERED: CEFTRIAXONE SODIUM 1,000 MG in DEXTROSE 5%-WATER 50 ML IV SCH (10:00)
[2019-03-08 10:02] LABS: CREATINE KINASE MB 2.12 ng/mL (<4.55); TROPONIN I 0.059 ng/mL
[2019-03-08 10:04] LABS: ABSOLUTE LYMPHOCYTES# (MANUAL) 1.4 10^3/uL (0.5-4.7); ABSOLUTE MONOCYTES # (MANUAL) 1.7 10^3/uL (0.1-1.4); ABSOLUTE NEUTROPHILS# (MANUAL) 13.9 10^3/uL (1.7-8.2); ANISOCYTOSIS SLIGHT; BASOPHILS % (MANUAL) 0 % (0-2); EOSINOPHILS % (MANUAL) 0 % (0-6); LYMPHOCYTES % (MANUAL) 8 % (13-45); MONOCYTES % (MANUAL) 10 % (3-13); PLATELET COMMENT ADEQUATE; SEGMENTED NEUTROPHILS % (MAN) 82 % (42-78); TOTAL CELLS COUNTED 100
[2019-03-08 10:08] LABS: ALANINE AMINOTRANSFERASE 1167 U/L (9-52); LIPASE 8806.7 U/L (23-300); POTASSIUM 5.7 mmol/L (3.6-5.0)
--- NOTE | 2019-03-08 10:11 | PDOC PROGRESS REPORT ---
Subjective Progress Note for:: 03/08/19 Subjective:: 68 year old female with history of diabetes mellitus type 2, hypertension, hyperlipidemia came to the emergency room with complaints of sudden onset of abdominal pain associated with nausea and vomiting's from this morning. Patient woke up around 7 AM with sudden onset of abdominal pain nausea and vomitings took some water right went back to bed pain is persisting associated with vomiting's 4 times bilious vomiting she called her daughter around 9 AM day and thereafter to the hospital for further evaluation. Patient is complaining of chills Reiger's denies any fever. Had a bowel movement this morning. Denies any cough cold or chest pains. Denies any shortness of breath. Denies any rashes. Denies any headaches dizziness or lightheadedness. Abdominal pain is 10 x 10 at the time of presentation. no Aggravating factors no relieving factors. 03/08/2019-patient is portably in bed. Pain-free. Dr. Martin came this morning he thinks patient is not a surgical candidate anymore. He recommended ice chips. Patient wants to eat. Given IV fluids at 125 cc/h and fluids are decreased to 75 cc/h. Patient is tachycardic heart rate went up to 155 last n ight she was started on metoprolol 5 mg IV every 4 as needed. Presently heart rate is around 120. Denies any chest pains denies any shortness of breath. Communicating well. Plan to downgrade the patient to IMCU. Reason For Visit: BLOOD SUGAR ISSUES Physical Exam Vital Signs: Temp Pulse Resp BP Pulse Ox 98.1 F 155 H 24 H 121/83 94 03/08/19 05:00 03/07/19 21:50 03/08/19 09:09 03/08/19 09:09 03/08/19 09:09 Intake & Output 03/07/19 03/08/19 03/09/19 06:59 06:59 06:59 Intake Total 1100 0 Output Total 550 350 Balance 550 -350 Weight 73.8 kg General appearance: PRESENT: no acute distress, obese Head exam: PRESENT: atraumatic Eye exam: PRESENT: PERRLA Neck exam: ABSENT: carotid bruit, JVD, lymphadenopathy, thyromegaly Respiratory exam: PRESENT: clear to auscultation marce. ABSENT: rales, rhonchi, wheezes Cardiovascular exam: PRESENT: tachycardia GI/Abdominal exam: PRESENT: normal bowel sounds, soft. ABSENT: distended, guarding, mass, organolmegaly, rebound, tenderness Rectal exam: PRESENT: deferred Extremities exam: PRESENT: full ROM. ABSENT: calf tenderness, clubbing, pedal edema Neurological exam: PRESENT: alert, awake, oriented to person, oriented to place, oriented to time, oriented to situation, CN II-XII grossly intact. ABSENT: motor sensory deficit Psychiatric exam: PRESENT: appropriate affect, normal mood. ABSENT: homicidal ideation, suicidal ideation Results Laboratory Results: 03/08/19 09:18 03/07/19 03/07/19 03/07/19 13:52 13:52 15:11 WBC 18.6 H RBC 5.73 H Hgb 15.9 H Hct 49.2 H MCV 86 MCH 27.7 MCHC 32.3 RDW 13.7 Plt Count 314 Seg Neutrophils % 89.3 H Lymphocytes % 6.0 L Monocytes % 4.6 Eosinophils % 0.0 Basophils % 0.1 Absolute Neutrophils 16.6 H Absolute Lymphocytes 1.1 Absolute Monocytes 0.9 Absolute Eosinophils 0.0 Absolute Basophils 0.0 Carbonic Acid HCO3/H2CO3 Ratio ABG pH ABG pCO2 ABG pO2 ABG HCO3 ABG O2 Saturation ABG Base Excess VBG pH Cancelled VBG pCO2 Cancelled VBG HCO3 Cancelled VBG Base Excess Cancelled FiO2 Sodium 141.9 Potassium 4.7 Chloride 103 Carbon Dioxide 21 L Anion Gap 18 BUN 30 H Creatinine 1.37 H Est GFR ( Amer) 47 L Est GFR (Non-Af Amer) 38 L Glucose 439 H* Lactic Acid Calcium 10.6 H Total Bilirubin 1.3 AST 2318 H ALT 1777 H Alkaline Phosphatase 212 H Total Protein 8.4 H Albumin 4.7 Lipase 49448.3 H Urine Color Urine Appearance Urine pH Ur Specific [place] Urine Protein Urine Glucose (UA) Urine Ketones Urine Blood Urine Nitrite Ur Leukocyte Esterase Urine WBC (Auto) Urine RBC (Auto) 03/07/19 03/07/19 03/07/19 15:55 16:22 19:19 WBC RBC Hgb Hct MCV MCH MCHC RDW Plt Count Seg Neutrophils % Lymphocytes % Monocytes % Eosinophils % Basophils % Absolute Neutrophils Absolute Lymphocytes Absolute Monocytes Absolute Eosinophils Absolute Basophils Carbonic Acid HCO3/H2CO3 Ratio ABG pH ABG pCO2 ABG pO2 ABG HCO3 ABG O2 Saturation ABG Base Excess VBG pH 7.14 L* VBG pCO2 67.9 H* VBG HCO3 22.8 VBG Base Excess -7.6 FiO2 Sodium Potassium Chloride Carbon Dioxide Anion Gap BUN Creatinine Est GFR ( Amer) Est GFR (Non-Af Amer) Glucose Lactic Acid 7.0 H Calcium Total Bilirubin AST ALT Alkaline Phosphatase Total Protein Albumin Lipase Urine Color YELLOW Urine Appearance CLOUDY Urine pH 5.0 Ur Specific [place] 1.014 Urine Protein 100 H Urine Glucose (UA) >=500 H Urine Ketones NEGATIVE Urine Blood SMALL H Urine Nitrite NEGATIVE Ur Leukocyte Esterase SMALL H Urine WBC (Auto) 19 Urine RBC (Auto) 2 03/07/19 03/08/19 21:19 09:18 WBC 16.9 H RBC 5.47 H Hgb 15.5 Hct 46.8 MCV 86 MCH 28.4 MCHC 33.2 RDW 14.0 Plt Count 246 Seg Neutrophils % Not Reportable Lymphocytes % Not Reportable Monocytes % Not Reportable Eosinophils % Not Reportable Basophils % Not Reportable Absolute Neutrophils Not Reportable Absolute Lymphocytes Not Reportable Absolute Monocytes Not Reportable Absolute Eosinophils Not Reportable Absolute Basophils Not Reportable Carbonic Acid 1.07 HCO3/H2CO3 Ratio 15:1 ABG pH 7.28 L ABG pCO2 35.5 ABG pO2 78.6 L ABG HCO3 16.3 L ABG O2 Saturation 94.3 ABG Base Excess -9.4 VBG pH VBG pCO2 VBG HCO3 VBG Base Excess FiO2 21% Sodium Potassium Chloride Carbon Dioxide Anion Gap BUN Creatinine Est GFR ( Amer) Est GFR (Non-Af Amer) Glucose Lactic Acid Calcium Total Bilirubin AST ALT Alkaline Phosphatase Total Protein Albumin Lipase Urine Color Urine Appearance Urine pH Ur Specific [place] Urine Protein Urine Glucose (UA) Urine Ketones Urine Blood Urine Nitrite Ur Leukocyte Esterase Urine WBC (Auto) Urine RBC (Auto) 03/07/19 03/07/19 03/07/19 13:52 19:19 19:19 Creatine Kinase 87 CK-MB (CK-2) 0.78 Troponin I < 0.012 < 0.012 03/08/19 03/08/19 01:22 01:22 Creatine Kinase 94 CK-MB (CK-2) 1.34 Troponin I 0.034 Impressions: Abdomen/Pelvis CT 03/07/19 00:00 IMPRESSION: Findings compatible with acute pancreatitis. Cholelithiasis. Chest X-Ray 03/07/19 00:00 IMPRESSION: Linear opacities at the lower lungs may represent scar versus subsegmental atelectasis. Abdomen Ultrasound 03/07/19 16:17 IMPRESSION: Nonshadowing gallstones versus moderate amount of endoluminal sludge. Increased gallbladder wall thickness, 4-5 mm. Trace amount of fluid in Farrell's pouch. Consider surgical consultation. Assessment and Plan - Diagnosis (1) Gallbladder disease Is this a current diagnosis for this admission?: Yes Plan: 03/07/2019-patient is going to be admitted to the ICU for gallbladder disease. She is going to be n.p.o. Surgical consult was done. Blood cultures urine cultures are requested. Started on Invanz 1 g IV daily. IV morphine 2 mg every 4 hours as needed initiated. GI prophylaxis was started. DVT prophylaxis on hold because of possible surgery. Start an IV Zofran 4 mg every 6 hours as needed for nausea vomiting's. On oxygen 2 L nasal cannula. To do the ABG. Ariana st x-ray and CT abdomen and pelvis with contrast was requested. CODE STATUS is full code. His WBC count is 18,000 with sweats chills and Reiger's. Started on antibiotic therapy septic work-up was requested. 03/08/2019-patient came in with elevated LFTs and elevated lipase. Ultrasound the gallbladder indicates thickening of the gallbladder wall and slight pericholecystic fluid. Dr. Martin evaluated the patient and he thinks patient is not a surgical candidate. Patient is presently on Invanz. Afebrile. Pain- free. Today's labs are pending. (2) Pancreatitis Qualifiers: Chronicity: acute Pancreatitis type: biliary Acute pancreatitis complication: unspecified Qualified Code(s): K85.10 - Biliary acute pancreatitis without necrosis or infection Is this a current diagnosis for this admission?: Yes Plan: 03/07/2019-patient came in with severe abdominal pain especially in the epigastric region denies any radiation to the back lipase is more than 30,000. She has also elevated LFTs. u/s of the gallbladder was done which indicates thickening of the gallbladder wall and gallstones. Surgical consult was requested plan to do the CT abdomen pelvis IV contrast. Chest x-ray was requested. to repeat the lipase levels tomorrow morning. 03/08/2019-patient came in with severe epigastric pain lipase is more than 30,000 repeat lipase is pending. Patient is presently n.p.o. and on IV fluids ,plan is to allow her to take some ice chips. And plan is also to repeat the labs tomorrow. 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 Taking glipizide at home. She is used to take metformin but she is not taking it anymore. To check blood sugars every 6 hours with prior insulin sliding scale every 6 hours. Hemoglobin A1c in the morning. 03/08/2019-patient's has type 2 diabetes mellitus. Hemoglobin A1c is 8.2. Patient is requiring higher doses of insulin coverage. Dietary consult is requested. (4) HTN (hypertension) Is this a current diagnosis for this admission?: No Plan: 03/07/2019-patient has history of hypertension blood pressure is 138/70. Patient is take lisinopril at home which was on hold at this time. 03/08/2019-patient blood pressure is well controlled 120/70. Antihypertensives are on hold. (5) Acidosis Is this a current diagnosis for this admission?: Yes Plan: 03/07/2019-80 VBG was done in the emergency room pH is 7.14/PCO2 67. Acidosis may be secondary to uncontrolled diabetes mellitus. Or may be secondary to pain. ABG was requested, chest x-ray was requested, started on oxygen 2 L nasal cannula. 03/08/2019-patient came in with acidosis. Of admission pH is 7.14 with PCO2 67. ABG yesterday shows pH of 7.28 and bicarb is 17. Acidosis is resolving. Today's chemistry is pending. Patient is asymptomatic. (6) Tachycardia Is this a current diagnosis for this admission?: Yes Plan: 03/08/2019-patient has a sinus tachycardia and heart rate went up to 150 last night. She was started on metoprolol 5 mg IV every 4 as needed. Heart rate is 120. Tachycardia may be secondary to her pain. Plan is to closely watch the heart rate. - Time Time Spent with patient: 25-34 minutes Medications reviewed and adjusted accordingly: Yes Anticipated discharge: Home
--- NOTE | 2019-03-08 11:16 | EKG REPORT ---
SEVERITY:- ABNORMAL ECG - SINUS TACHYCARDIA SRINIVAS, CONSIDER BIATRIAL ABNORMALITIES : Confirmed by: Tod Wilson 08-Mar-2019 11:15:46
[2019-03-08] MEDS: ENOXAPARIN SODIUM INJ 80 MG/0.8 ML DISP.SYRIN SUBCUT SCH ×2 (11:23→22:18)
[2019-03-08] MEDS: ASPIRIN 325 MG TABLET PO SCH (11:23)
[2019-03-08] MEDS: PANTOPRAZOLE SODIUM 40 MG VIAL IV SCH ×2 (11:23→22:18)
[2019-03-08] MEDS: NORMAL SALINE 1000 ML 1,000 ML IV PRN ×2 (11:26→18:31)
[2019-03-08 13:57] LABS: CREATINE KINASE MB 1.78 ng/mL (<4.55); TROPONIN I 0.054 ng/mL
[2019-03-08] MEDS: METOPROLOL TARTRATE PF/INJ 5 MG/5 ML SDV IV PRN (16:55)
[2019-03-08 20:08] LABS: CREATINE KINASE MB 2.24 ng/mL (<4.55); TROPONIN I 0.046 ng/mL
[2019-03-08] MEDS: ATORVASTATIN CALCIUM 10 MG TABLET PO SCH (22:00)
[2019-03-08] MEDS ORDERED: ERTAPENEM SODIUM INJ 1 GM VIAL ONE (22:55)
--- NOTE | 2019-03-08 23:03 | EKG REPORT ---
SEVERITY:- BORDERLINE ECG - SINUS TACHYCARDIA PROBABLE LEFT ATRIAL ABNORMALITY : Confirmed by: Tod Wilson 08-Mar-2019 23:03:08
[2019-03-09] MEDS: METOPROLOL TARTRATE PF/INJ 5 MG/5 ML SDV IV PRN ×3 (01:10→19:00)
[2019-03-09 02:04] LABS: CREATINE KINASE MB 2.23 ng/mL (<4.55); TROPONIN I 0.052 ng/mL
[2019-03-09] MEDS: MORPHINE SULFATE 10 MG/ML INJ IV PRN ×3 (06:08→15:37)
[2019-03-09] MEDS: INSULIN REG, HUMAN 100 UNIT/ML 3 ML VIAL (PYX) SUBCUT SCH ×3 (06:08→18:26)
[2019-03-09 06:58] LABS: HEMOGLOBIN 14.1 g/dL (12.0-15.5); MEAN CORPUSCULAR HEMOGLOBIN 28.2 pg (27.0-33.4); MEAN CORPUSCULAR VOLUME 88 fl (80-97); PLATELET COUNT 207 10^3/uL (150-450); WHITE BLOOD COUNT 17.2 10^3/uL (4.0-10.5)
[2019-03-09 07:37] LABS: HEPATITIS A AB IGM Negative (Negative); HEPATITIS B CORE AB IGM Negative (Negative); HEPATITS B SURFACE ANTIGEN Negative (Negative)
[2019-03-09 07:39] LABS: ABSOLUTE LYMPHOCYTES# (MANUAL) 0.7 10^3/uL (0.5-4.7); ABSOLUTE MONOCYTES # (MANUAL) 0.3 10^3/uL (0.1-1.4); ABSOLUTE NEUTROPHILS# (MANUAL) 16.2 10^3/uL (1.7-8.2); BAND NEUTROPHILS % (MANUAL) 9 % (3-5); BASOPHILS % (MANUAL) 0 % (0-2); EOSINOPHILS % (MANUAL) 0 % (0-6); LYMPHOCYTES % (MANUAL) 4 % (13-45); MONOCYTES % (MANUAL) 2 % (3-13); SEGMENTED NEUTROPHILS % (MAN) 85 % (42-78); TOTAL CELLS COUNTED 100
[2019-03-09 07:40] LABS: ANISOCYTOSIS SLIGHT; BURR CELLS SLIGHT; PLATELET COMMENT ADEQUATE; POIKILOCYTOSIS SLIGHT; TOXIC GRANULATION SLIGHT
[2019-03-09 08:35] LABS: ALANINE AMINOTRANSFERASE 620 U/L (9-52); ALBUMIN 3.1 g/dL (3.5-5.0); ALKALINE PHOSPHATASE 193 U/L (38-126); ANION GAP 12 (5-19); ASPARTATE AMINO TRANSFERASE 351 U/L (14-36); BILIRUBIN,DIRECT 0.8 mg/dL (0.0-0.4); BILIRUBIN,TOTAL 0.9 mg/dL (0.2-1.3); CARBON DIOXIDE 17 mmol/L (22-30); CHLORIDE 116 mmol/L (98-107); GLUCOSE 311 mg/dL (75-110); POTASSIUM 5.9 mmol/L (3.6-5.0); SODIUM 144.7 mmol/L (137-145); TOTAL PROTEIN 6.4 g/dL (6.3-8.2)
[2019-03-09 08:45] LABS: BLOOD UREA NITROGEN 59 mg/dL (7-20)
[2019-03-09 08:48] LABS: CALCIUM 6.9 mg/dL (8.4-10.2)
[2019-03-09] MEDS: NORMAL SALINE 1000 ML 1,000 ML IV PRN (09:09)
[2019-03-09] MEDS: PANTOPRAZOLE SODIUM 40 MG VIAL IV SCH ×2 (09:10→22:44)
[2019-03-09] MEDS: ENOXAPARIN SODIUM INJ 80 MG/0.8 ML DISP.SYRIN SUBCUT SCH ×2 (09:13→22:45)
[2019-03-09] MEDS: ASPIRIN 325 MG TABLET PO SCH (09:13)
[2019-03-09] MEDS ORDERED: NORMAL SALINE 1000 ML 1,000 ML IV ONE ×4 (09:34→21:45)
[2019-03-09 10:57] LABS: ALANINE AMINOTRANSFERASE 523 U/L (9-52); ALBUMIN 2.7 g/dL (3.5-5.0); ALKALINE PHOSPHATASE 174 U/L (38-126); ANION GAP 13 (5-19); ASPARTATE AMINO TRANSFERASE 299 U/L (14-36); BILIRUBIN,DIRECT 0.6 mg/dL (0.0-0.4); BILIRUBIN,TOTAL 0.8 mg/dL (0.2-1.3); BLOOD UREA NITROGEN 60 mg/dL (7-20); CARBON DIOXIDE 17 mmol/L (22-30); CHLORIDE 116 mmol/L (98-107); GLUCOSE 308 mg/dL (75-110); POTASSIUM 5.9 mmol/L (3.6-5.0); SODIUM 145.7 mmol/L (137-145); TOTAL PROTEIN 5.5 g/dL (6.3-8.2)
[2019-03-09 11:03] LABS: LIPASE 8452.9 U/L (23-300)
[2019-03-09 11:06] LABS: CALCIUM 6.6 mg/dL (8.4-10.2)
--- NOTE | 2019-03-09 12:38 | PDOC PROGRESS REPORT ---
Subjective Progress Note for:: 03/09/19 Subjective:: This is a 68-year-old female with gallstone pancreatitis. She still reports significant abdominal pain this morning. She reports fatigue and weakness. She denies chest pain, shortness of breath, fevers, chills, headache, blurry vision. She also denies significant amounts of nausea or vomiting. Reason For Visit: BLOOD SUGAR ISSUES Physical Exam Vital Signs: Temp Pulse Resp BP Pulse Ox 97.5 F 104 H 20 140/75 H 100 03/09/19 11:21 03/09/19 11:21 03/09/19 11:21 03/09/19 11:21 03/09/19 11:21 Intake & Output 03/08/19 03/09/19 03/10/19 06:59 06:59 06:59 Intake Total 8501 833 1217 Output Total 550 350 240 Balance 552 943 1319 Weight 73.8 kg 76.8 kg General appearance: PRESENT: cooperative, obese Head exam: PRESENT: atraumatic, normocephalic Eye exam: PRESENT: EOMI, PERRLA. ABSENT: scleral icterus Mouth exam: PRESENT: moist, neck supple Neck exam: ABSENT: meningismus, tenderness, thyromegaly, tracheal deviation Respiratory exam: PRESENT: clear to auscultation marce, symmetrical, unlabored. ABSENT: chest wall tenderness, tachypnea Cardiovascular exam: PRESENT: tachycardia Pulses: PRESENT: normal radial pulses Vascular exam: PRESENT: normal capillary refill GI/Abdominal exam: PRESENT: soft, tenderness - Moderate, diffuse. ABSENT: distended Rectal exam: PRESENT: deferred Extremities exam: ABSENT: clubbing Musculoskeletal exam: ABSENT: deformity Neurological exam: PRESENT: alert, awake, oriented to person, oriented to place, oriented to time, oriented to situation, CN II-XII grossly intact Psychiatric exam: ABSENT: agitated, anxious, depressed Focused psych exam: ABSENT: delusional Skin exam: ABSENT: cyanosis, erythema, jaundice Results Laboratory Results: 03/09/19 06:01 03/09/19 10:22 03/09/19 03/09/19 03/09/19 06:01 06:01 07:49 WBC 17.2 H RBC 5.00 Hgb 14.1 Hct 44.0 MCV 88 MCH 28.2 MCHC 32.0 RDW 15.0 H Plt Count 207 Seg Neutrophils % Not Reportable Lymphocytes % Not Reportable Monocytes % Not Reportable Eosinophils % Not Reportable Basophils % Not Reportable Absolute Neutrophils Not Reportable Absolute Lymphocytes Not Reportable Absolute Monocytes Not Reportable Absolute Eosinophils Not Reportable Absolute Basophils Not Reportable Sodium Cancelled 144.7 Potassium Cancelled 5.9 H Chloride Cancelled 116 H Carbon Dioxide Cancelled 17 L Anion Gap Cancelled 12 BUN Cancelled 59 H D Creatinine Cancelled 2.36 H Est GFR ( Amer) Cancelled 25 L Est GFR (Non-Af Amer) Cancelled 21 L Glucose Cancelled 311 H Calcium Cancelled 6.9 L* Magnesium Cancelled 2.0 Total Bilirubin Cancelled 0.9 AST Cancelled 351 H ALT Cancelled 620 H Alkaline Phosphatase Cancelled 193 H Total Protein Cancelled 6.4 Albumin Cancelled 3.1 L Lipase Cancelled Stool Occult Blood 03/09/19 03/09/19 10:22 10:50 WBC RBC Hgb Hct MCV MCH MCHC RDW Plt Count Seg Neutrophils % Lymphocytes % Monocytes % Eosinophils % Basophils % Absolute Neutrophils Absolute Lymphocytes Absolute Monocytes Absolute Eosinophils Absolute Basophils Sodium 145.7 H Potassium 5.9 H Chloride 116 H Carbon Dioxide 17 L Anion Gap 13 BUN 60 H Creatinine 2.51 H Est GFR ( Amer) 23 L Est GFR (Non-Af Amer) 19 L Glucose 308 H Calcium 6.6 L* Magnesium Total Bilirubin 0.8 AST 299 H ALT 523 H Alkaline Phosphatase 174 H Total Protein 5.5 L Albumin 2.7 L Lipase 8452.9 H Stool Occult Blood POSITIVE 03/07/19 03/07/19 03/07/19 13:52 19:19 19:19 Creatine Kinase 87 CK-MB (CK-2) 0.78 Troponin I < 0.012 < 0.012 NT-Pro-B Natriuret Pep 03/08/19 03/08/19 03/08/19 01:22 01:22 09:18 Creatine Kinase 94 104 CK-MB (CK-2) 1.34 Troponin I 0.034 NT-Pro-B Natriuret Pep 03/08/19 03/08/19 03/08/19 09:18 13:07 13:07 Creatine Kinase 116 CK-MB (CK-2) 2.12 1.78 Troponin I 0.059 0.054 NT-Pro-B Natriuret Pep 669 03/08/19 03/08/1903/09/19 18:56 18:56 01:12 Creatine Kinase 150 H 153 H CK-MB (CK-2) 2.24 Troponin I 0.046 NT-Pro-B Natriuret Pep 03/09/19 01:12 Creatine Kinase CK-MB (CK-2) 2.23 Troponin I 0.052 NT-Pro-B Natriuret Pep Impressions: Abdomen/Pelvis CT 03/07/19 00:00 IMPRESSION: Findings compatible with acute pancreatitis. Cholelithiasis. Chest X-Ray 03/07/19 00:00 IMPRESSION: Linear opacities at the lower lungs may represent scar versus subsegmental atelectasis. Abdomen Ultrasound 03/07/19 16:17 IMPRESSION: Nonshadowing gallstones versus moderate amount of endoluminal sludge. Increased gallbladder wall thickness, 4-5 mm. Trace amount of fluid in Farrell's pouch. Consider surgical consultation. Assessment & Plan - Diagnosis (1) Biliary acute pancreatitis Qualifiers: Acute pancreatitis complication: no infection or necrosis Qualified Code(s): K85.10 - Biliary acute pancreatitis without necrosis or infection Is this a current diagnosis for this admission?: Yes - Plan Summary Plan Summary: This is a 68-year-old female with biliary pancreatitis. Her symptoms are still present. Her lipase is still elevated. Her white blood cell count is also elevated. The patient appears somewhat dehydrated this morning. She has had very little urine output, her BUN and creatinine are rising, and she feels weak and tired. I will place a Long catheter and give her a 2 L normal saline bolus. I will repeat a CMP later this afternoon as well as a lactic acid. Continue with aggressive hydration. Continue with medical management for now. Once pancreatitis resolves, the patient will require cholecystectomy.
[2019-03-09] MEDS ORDERED: NORMAL SALINE 1000 ML 1,000 ML IV PRN (12:40)
[2019-03-09 12:59] LABS: HEPATITIS C VIRUS ANTIBODY <0.1 s/co ratio (0.0-0.9)
[2019-03-09] MEDS ORDERED: CALCIUM GLUCONATE 2,000 MG in DEXTROSE 5%-WATER 100 ML IV ONE (13:00)
[2019-03-09 14:39] LABS: ALANINE AMINOTRANSFERASE 549 U/L (9-52); ALBUMIN 2.7 g/dL (3.5-5.0); ALKALINE PHOSPHATASE 206 U/L (38-126); ANION GAP 13 (5-19); ASPARTATE AMINO TRANSFERASE 314 U/L (14-36); BILIRUBIN,DIRECT 0.7 mg/dL (0.0-0.4); BILIRUBIN,TOTAL 0.8 mg/dL (0.2-1.3); BLOOD UREA NITROGEN 59 mg/dL (7-20); CARBON DIOXIDE 14 mmol/L (22-30); CHLORIDE 120 mmol/L (98-107); GLUCOSE 256 mg/dL (75-110); POTASSIUM 5.2 mmol/L (3.6-5.0); SODIUM 146.6 mmol/L (137-145); TOTAL PROTEIN 5.4 g/dL (6.3-8.2)
[2019-03-09 14:48] LABS: CALCIUM 6.6 mg/dL (8.4-10.2)
--- NOTE | 2019-03-09 16:06 | PDOC PROGRESS REPORT ---
Subjective Progress Note for:: 03/09/19 Subjective:: Ms. Vincent was transferred from the ICU yesterday. She has a cholecystitis, and a severe pancreatitis. She is on antibiotics and surgeries been consulted. She is on IV fluids and is n.p.o. She does not feel very well today. She has not had very much urine output. Her creatinine is elevated. Reason For Visit: BLOOD SUGAR ISSUES Physical Exam Vital Signs: Temp Pulse Resp BP Pulse Ox 97.5 F 115 H 20 140/75 H 100 03/09/19 11:21 03/09/19 14:00 03/09/19 11:21 03/09/19 11:21 03/09/19 11:21 Intake & Output 03/08/19 03/09/19 03/10/19 06:59 06:59 06:59 Intake Total 7758 290 7421 Output Total 550 350 375 Balance 429 253 8774 Weight 73.8 kg 76.8 kg General appearance: PRESENT: cooperative, disheveled, mild distress, obese Respiratory exam: PRESENT: clear to auscultation marce, symmetrical, unlabored. ABSENT: accessory muscle use, crackles, prolonged expiratory phas, rhonchi, tachypnea, wheezes Cardiovascular exam: PRESENT: tachycardia Pulses: PRESENT: normal carotid pulses Vascular exam: PRESENT: normal capillary refill GI/Abdominal exam: PRESENT: diminished bowel sounds, soft, tenderness. ABSENT: distended, guarding, rebound Extremities exam: ABSENT: clubbing, pedal edema Musculoskeletal exam: PRESENT: normal inspection. ABSENT: deformity Neurological exam: PRESENT: alert, awake, oriented to person, oriented to place, oriented to time, oriented to situation Psychiatric exam: PRESENT: flat affect Skin exam: PRESENT: dry, warm Results Laboratory Results: 03/09/19 06:01 03/09/19 13:57 03/09/19 03/09/19 03/09/19 06:01 06:01 07:49 WBC 17.2 H RBC 5.00 Hgb 14.1 Hct 44.0 MCV 88 MCH 28.2 MCHC 32.0 RDW 15.0 H Plt Count 207 Seg Neutrophils % Not Reportable Lymphocytes % Not Reportable Monocytes % Not Reportable Eosinophils % Not Reportable Basophils % Not Reportable Absolute Neutrophils Not Reportable Absolute Lymphocytes Not Reportable Absolute Monocytes Not Reportable Absolute Eosinophils Not Reportable Absolute Basophils Not Reportable Sodium Cancelled 144.7 Potassium Cancelled 5.9 H Chloride Cancelled 116 H Carbon Dioxide Cancelled 17 L Anion Gap Cancelled 12 BUN Cancelled 59 H D Creatinine Cancelled 2.36 H Est GFR ( Amer) Cancelled 25 L Est GFR (Non-Af Amer) Cancelled 21 L Glucose Cancelled 311 H Lactic Acid Calcium Cancelled 6.9 L* Magnesium Cancelled 2.0 Total Bilirubin Cancelled 0.9 AST Cancelled 351 H ALT Cancelled 620 H Alkaline Phosphatase Cancelled 193 H Total Protein Cancelled 6.4 Albumin Cancelled 3.1 L Lipase Cancelled Stool Occult Blood 03/09/19 03/09/19 03/09/19 10:22 10:50 13:57 WBC RBC Hgb Hct MCV MCH MCHC RDW Plt Count Seg Neutrophils % Lymphocytes % Monocytes % Eosinophils % Basophils % Absolute Neutrophils Absolute Lymphocytes Absolute Monocytes Absolute Eosinophils Absolute Basophils Sodium 145.7 H 146.6 H Potassium 5.9 H 5.2 H Chloride 116 H 120 H Carbon Dioxide 17 L 14 L Anion Gap 13 13 BUN 60 H 59 H Creatinine 2.51 H 2.36 H Est GFR ( Amer) 23 L 25 L Est GFR (Non-Af Amer) 19 L 21 L Glucose 308 H 256 H Lactic Acid Calcium 6.6 L* 6.6 L* Magnesium Total Bilirubin 0.8 0.8 AST 299 H 314 H ALT 523 H 549 H Alkaline Phosphatase 174 H 206 H Total Protein 5.5 L 5.4 L Albumin 2.7 L 2.7 L Lipase 8452.9 H Stool Occult Blood POSITIVE 03/09/19 14:35 WBC RBC Hgb Hct MCV MCH MCHC RDW Plt Count Seg Neutrophils % Lymphocytes % Monocytes % Eosinophils % Basophils % Absolute Neutrophils Absolute Lymphocytes Absolute Monocytes Absolute Eosinophils Absolute Basophils Sodium Potassium Chloride Carbon Dioxide Anion Gap BUN Creatinine Est GFR ( Amer) Est GFR (Non-Af Amer) Glucose Lactic Acid 3.8 H Calcium Magnesium Total Bilirubin AST ALT Alkaline Phosphatase Total Protein Albumin Lipase Stool Occult Blood 03/07/19 03/07/19 03/07/19 13:52 19:19 19:19 Creatine Kinase 87 CK-MB (CK-2) 0.78 Troponin I < 0.012 < 0.012 NT-Pro-B Natriuret Pep 03/08/19 03/08/19 03/08/19 01:22 01:22 09:18 Creatine Kinase 94 104 CK-MB (CK-2) 1.34 Troponin I 0.034 NT-Pro-B Natriuret Pep 03/08/19 03/08/19 03/08/19 09:18 13:07 13:07 Creatine Kinase 116 CK-MB (CK-2) 2.12 1.78 Troponin I 0.059 0.054 NT-Pro-B Natriuret Pep 669 03/08/19 03/08/19 03/09/19 18:56 18:56 01:12 Creatine Kinase 150 H 153 H CK-MB (CK-2) 2.24 Troponin I 0.046 NT-Pro-B Natriuret Pep 03/09/19 01:12 Creatine Kinase CK-MB (CK-2) 2.23 Troponin I 0.052 NT-Pro-B Natriuret Pep Impressions: Abdomen/Pelvis CT 03/07/19 00:00 IMPRESSION: Findings compatible with acute pancreatitis. Cholelithiasis. Chest X-Ray 03/07/19 00:00 IMPRESSION: Linear opacities at the lower lungs may represent scar versus subsegmental atelectasis. Abdomen Ultrasound 03/07/19 16:17 IMPRESSION: Nonshadowing gallstones versus moderate amount of endoluminal sludge. Increased gallbladder wall thickness, 4-5 mm. Trace amount of fluid in Farrell's pouch. Consider surgical consultation. Assessment and Plan - Diagnosis (1) Acidosis Is this a current diagnosis for this admission?: Yes Plan: This had improved after some IV fluids and some antibiotics, but her still low. If it drops much more in the setting of her acute kidney injury, I may consider some sort of fluid with bicarbonate. (2) Biliary acute pancreatitis Qualifiers: Acute pancreatitis complication: no infection or necrosis Qualified Code(s): K85.10 - Biliary acute pancreatitis without necrosis or infection Is this a current diagnosis for this admission?: Yes Plan: Gut rest and IV fluids. Antiemetics. (3) Gallbladder disease Is this a current diagnosis for this admission?: Yes Plan: Surgeries been consulted. She is currently on antibiotics. She has a cholecystitis. Plan is for her to have a cholecystectomy once her pancreatitis resolves and her overall clinical condition improves. (4) [id number]-epozsdh kidney injury Qualifiers: Acute renal failure type: with acute tubular necrosis Chronic kidney disease stage: stage 3 (moderate) Qualified Code(s): N17.0 - Acute kidney failure with tubular necrosis; N18.3 - Chronic kidney disease, stage 3 (moderate) Is this a current diagnosis for this admission?: Yes Plan: She had acute worsening of her kidney function, likely related to her cholecystitis and her pancreatitis. She is getting IV fluids. Her bicarbonate is dropping. If it drops much lower I may add some bicarbonate to some of her fluids. Surgery gave her a 2 L fluid bolus with normal saline this morning and have started some half-normal saline continuously. (5) Hyperkalemia Is this a current diagnosis for this admission?: Yes Plan: Likely due to her renal failure, has improved some after some IV fluids. (6) Hypocalcemia Is this a current diagnosis for this admission?: Yes Plan: Replacing with IV supplement - Time Time Spent with patient: 25-34 minutes
[2019-03-09] MEDS: 1/2 NORMAL SALINE 1,000 ML IV PRN ×2 (16:43→22:45)
[2019-03-09] MEDS: ATORVASTATIN CALCIUM 10 MG TABLET PO SCH (21:37)
[2019-03-09] MEDS: ERTAPENEM SODIUM 1 GM in NORMAL SALINE 50 ML IV SCH (22:45)
[2019-03-10] MEDS: INSULIN REG, HUMAN 100 UNIT/ML 3 ML VIAL (PYX) SUBCUT SCH ×2 (00:06→07:39)
[2019-03-10] MEDS ORDERED: NORMAL SALINE 1000 ML 1,000 ML IV ONE (01:45)
[2019-03-10] MEDS ORDERED: DOPAMINE HCL/DEXTROSE 5%-WATER 800 MG/250 ML RTUINJ IV PRN (04:53)
[2019-03-10 05:48] LABS: ARTERIAL BLOOD BASE EXCESS -16.4 mmol/L; ARTERIAL BLOOD H2CO3 1.54 mmol/L (1.05-1.35); ARTERIAL BLOOD HCO3 13.7 mmol/L (20-24); ARTERIAL BLOOD O2 SATURATION 83.6 % (94-98); ARTERIAL BLOOD PCO2 51.3 mmHg (35-45); ARTERIAL BLOOD PO2 67.2 mmHg (80-100); ARTERIAL BLOOD TOTAL CO2 15.3 mmol/L (21-25)
[2019-03-10 05:49] LABS: ARTERIAL BLOOD FIO2 15L; ARTERIAL BLOOD PH 7.05 (7.35-7.45)
[2019-03-10 06:00] LABS: MEAN CORPUSCULAR HEMOGLOBIN 28.3 pg (27.0-33.4); MEAN CORPUSCULAR HGB CONC 31.8 g/dL (32.0-36.0); MEAN CORPUSCULAR VOLUME 89 fl (80-97); PLATELET COUNT 172 10^3/uL (150-450); RED BLOOD COUNT 3.83 10^6/uL (3.72-5.28); RED CELL DISTRIBUTION WIDTH 15.4 % (11.5-14.0); WHITE BLOOD COUNT 15.5 10^3/uL (4.0-10.5)
[2019-03-10 06:01] LABS: HEMOGLOBIN 10.8 g/dL (12.0-15.5)
[2019-03-10] MEDS ORDERED: NORMAL SALINE 1000 ML 1,000 ML IV PRN (06:09)
[2019-03-10] MEDS ORDERED: PROPOFOL 1,000 MG/100 ML INFUS..BTL IV ONE (06:13)
--- NOTE | 2019-03-10 06:24 | Progress Note ---
Provider Note Provider Note: Critical care: 03/10/2019 Start time 0531 Hypotension, decrease responsiveness, tachycardia, severely diminished urine output. Patient was seen for the above listed problems and a rapid response environment. Her blood pressure was not obtainable by cuff but she was noted to have a very faint radial and dorsalis pedis pulse with a mild tachycardia in the 110s and poor mental responsiveness and no urine output for the last several hours. Patient's creatinine had risen dramatically yesterday and despite receiving IV fluid boluses she was not showing any response. Just prior to this event a dopamine renal dosing IV infusion had been ordered but it had not been started at the time of this response. Patient was found to have bilaterally clear lungs and to be obtunded to all but the most painful stimuli. Her abdomen provided significant tenderness to arouse her from her obtunded state on palpation. Natalia spaulding was transferred to the ICU and further care was provided there. Patient continued to be hypotensive and a Francisco-Synephrine infusion was initiated. Patient's blood pressure responded well to this effort. Patient's tachycardia remained at the area of the low 100s to the low 110s. Patient's O2 sat was consistently running in the mid 80s to 90 while she was placed in Trendelenburg for support of her blood pressure. Patient's laboratory became available and her ABG showed a pH of 7.05 and it was decided that patient should be intubated to help to improve her oxygenation and assist in correcting her acidosis. Dr. Pearson was consulted to perform a triple-lumen catheter to aid in providing better IV access for the patient. Patient will be started on initial ventilator settings utilizing a PEEP of 6, rate of 18, and FiO2 of 40% on a [facility] setting. Critical care in time 0622 Total critical care [id number] time 51 minutes.
[2019-03-10] MEDS ORDERED: MIDAZOLAM HCL 50 MG/100 ML RTUINJ ONE (06:25)
[2019-03-10 06:35] LABS: ALANINE AMINOTRANSFERASE 356 U/L (9-52); ALBUMIN 2.2 g/dL (3.5-5.0); ALKALINE PHOSPHATASE 159 U/L (38-126); ANION GAP 11 (5-19); ASPARTATE AMINO TRANSFERASE 233 U/L (14-36); BILIRUBIN,DIRECT 0.6 mg/dL (0.0-0.4); BILIRUBIN,TOTAL 0.7 mg/dL (0.2-1.3); BLOOD UREA NITROGEN 65 mg/dL (7-20); CARBON DIOXIDE 14 mmol/L (22-30); CHLORIDE 123 mmol/L (98-107); GLUCOSE 178 mg/dL (75-110); POTASSIUM 5.4 mmol/L (3.6-5.0); SODIUM 148.2 mmol/L (137-145); TOTAL PROTEIN 4.6 g/dL (6.3-8.2)
[2019-03-10] MEDS: DEXTROSE 5%-WATER 250 ML with PHENYLEPHRINE HCL 40 MG IV PRN ×4 (06:56→09:53)
[2019-03-10 07:25] LABS: LIPASE 6236.1 U/L (23-300)
[2019-03-10 07:26] LABS: CALCIUM 5.9 mg/dL (8.4-10.2)
--- NOTE | 2019-03-10 07:32 | Operative Report ---
Nonrecallable Operative Report DATE OF SURGERY: 03/10/19 PREOPERATIVE DIAGNOSIS: acute pancreatatis. phlebosclerosis. hypotension POSTOPERATIVE DIAGNOSIS: same OPERATION: 1. ultrasound guided central venous access. 2. left IJ c-line placement. SURGEON: XAVIER HEALY ANESTHESIA: Local TISSUE REMOVED OR ALTERED: none COMPLICATIONS: none apparent ESTIMATED BLOOD LOSS: minimal PROCEDURE: Drains/implants: Left internal jugular vein central line at 15 cm. Procedure in detail: After emergency consent was obtained, the patient was laid in the Trendelenburg position. She had just been intubated by anesthesia. The area of the left neck and chest were prepped and draped in a normal sterile fashion. An ultrasound was used to identify the left internal jugular vein. It was compressible with normal flow. Using the supplied access needle, the internal jugular vein was cannulated. Dark venous, nonpulsatile blood was returned in the syringe. The wire was inserted into the vein very easily. The ultrasound was used to confirm that the wire was in the lumen of the vein. Photodocumentation was obtained and placed on the chart. The catheter was inserted into the vein, over the wire using a modified Seldinger technique. The catheter was sutured to the skin. The catheter was aspirated and flushed x3 wit hout difficulty. A dressing was placed, and the procedure was concluded. All sponge, instrument, and needle counts were correct. Condition: Critical in ICU.
[2019-03-10 07:52] LABS: ARTERIAL BLOOD H2CO3 0.99 mmol/L (1.05-1.35); ARTERIAL BLOOD HCO3 10.9 mmol/L (20-24); ARTERIAL BLOOD O2 SATURATION 95.4 % (94-98); ARTERIAL BLOOD PCO2 32.9 mmHg (35-45); ARTERIAL BLOOD PO2 98.1 mmHg (80-100); ARTERIAL BLOOD TOTAL CO2 11.9 mmol/L (21-25)
--- NOTE | 2019-03-10 07:53 | RADIOLOGY REPORT (SQ) ---
EXAM DESCRIPTION: XR CHEST 1 VIEW COMPLETED DATE/TME: 03/10/2019 06:32 CLINICAL HISTORY: TLC, ETT placement COMPARISON: 03/07/2019 FINDINGS: Single frontal view of the chest. Tubes and lines: Endotracheal tube with tip 5 cm above the jose. Left IJ central venous catheter tip in the SVC. NG tube with tip at the level of the gastroesophageal junction. Cardiomediastinal silhouette: Cardiomegaly. Leads overlie the chest. Lungs: Low lung volumes. Pulmonary vascular congestion. Small bilateral pleural effusions. Bones: No acute osseous abnormality. Upper abdomen: No additional findings. IMPRESSION: 1. Endotracheal tube in appropriate position. 2. NG tube with tip at the level of the gastroesophageal junction. Recommend advancing 10 to 15 cm. 3. Cardiomegaly with pulmonary vascular congestion and likely small bilateral pleural effusions. Underlying pneumonic process not excluded. Continued follow-up recommended.
[2019-03-10 07:54] LABS: ARTERIAL BLOOD FIO2 60%
[2019-03-10 07:55] LABS: ARTERIAL BLOOD PH 7.14 (7.35-7.45)
[2019-03-10] MEDS ORDERED: MIDAZOLAM HCL 50 MG/100 ML RTUINJ IV PRN (08:06)
[2019-03-10] MEDS ORDERED: SODIUM BICARBONATE 8.4% INJ 50 MEQ/50 ML DISP.SYRIN ONE (08:12)
[2019-03-10] MEDS ORDERED: PROPOFOL 1,000 MG/100 ML INFUS..BTL IV PRN (08:19)
[2019-03-10] MEDS ORDERED: CALCIUM GLUCONATE 1000 MG/10 ML INJ IV ONE (08:30)
[2019-03-10] MEDS ORDERED: DEXTROSE 5%-WATER 1000 ML 1,000 ML with SODIUM BICARBONATE 150 MEQ IV PRN ×2 (08:35)
[2019-03-10] MEDS: ASPIRIN 325 MG TABLET PO SCH (09:01)
--- NOTE | 2019-03-10 09:36 | PDOC TRANSFER SUMMARY ---
General Admission Date/PCP: 03/07/19 18:51 ALLEN OCONNOR Resuscitation Status: Full Code - Transfer Diagnosis (1) Gallbladder disease Is this a current diagnosis for this admission?: Yes Diagnosis Summary: 03/07/2019-patient is going to be admitted to the ICU for gallbladder disease. She is going to be n.p.o. Surgical consult was done. Blood cultures urine cultures are requested. Started on Invanz 1 g IV daily. IV morphine 2 mg every 4 hours as needed initiated. GI prophylaxis was started. DVT prophylaxis on hold because of possible surgery. Start an IV Zofran 4 mg every 6 hours as needed for nausea vomiting's. On oxygen 2 L nasal cannula. To do the ABG. Chest x-ray and CT abdomen and pelvis with contrast was requested. CODE STATUS is full code. His WBC count is 18,000 with sweats chills and Reiger's. Started on antibiotic therapy septic work-up was requested. 03/10/[id number]agb-old female came to the emergency room on 02/05/2019 with sudden onset of abdominal pain associated with nausea and vomitings ultrasound of the gallbladder was done and in the ER found to have thickened gallbladder and gallstones surgical consult was done and Dr. Martin's impression is that patient need emergency surgery because lipase was elevated more than 30,000 indicating acute pancreatitis on the CAT scan. Patient was started on Invanz, IV fluids, she was kept n.p.o. and on the second day lipase level came down to 8500. Patient was pain-free looking much better and she was downgraded to IMCU. Since yesterday patient's urinary output is going down ,at the time of admission creatinine was 1.3 bumped to 3.07 this morning , this morning rapid response was called because patient is hypotensive hypothermic she was promptly intubated and ABG shows pH of 7.05. Patient is presently on 60% oxygen with rate of 16 tidal volume of 500. Sodium bicarb drip was started. During the hospital course she received IV fluids at least 150 cc/h even even then urinary output is continued to decline and she is third spacing. pt is presently on Francisco-Synephrine maximum dose on the blood pressure is 106/48. WBC count is 15,000. Afebrile. Because of the all the comorbidities including acute pancreatitis, most likely acute cholecystitis, sepsis, and respiratory failure, acute renal failure call was placed to [facility] and spoke to Dr. Montenegro ICU attending he immediately accepted the patient and i sincerely appreciate his help. (2) Pancreatitis Is this a current diagnosis for this admission?: Yes Diagnosis Summary: 03/10/[id number]-hnsy-old male came in on 03/07/2019 with sudden onset of abdominal pain nausea and vomiting's lipase was more than 30,000 at the time of admission. Patient today 6236. Patient may have gallstone induced pancreatitis. Is presently n.p.o. intubated. On IV fluids. (3) Type 2 diabetes mellitus Is this a current diagnosis for this admission?: No (4) HTN (hypertension) Is this a current diagnosis for this admission?: No (5) Acidosis Is this a current diagnosis for this admission?: Yes Diagnosis Summary: 03/10/2019-rapid response was called this morning patient was promptly intubated ABG done on 60% oxygen shows pH of 7.14/PCO2 33 PO2 98% and bicarb is 10.9. pt is on sodium bicarb drip now. (6) Tachycardia Is this a current diagnosis for this admission?: Yes (7) Rburd-zh-iklwauk kidney injury Is this a current diagnosis for this admission?: Yes Diagnosis Summary: 03/10/2019-patient's admission creatinine is 1.3. Today's 3.09. Urinary output is less than 250 in the last 24 hours. Patient received at least 150 cc/h fluids for the last 48 hours. She is third spacing now. Urinary output is not improved at all. Patient become acidotic. She was intubated probably this morning. presently sodium bicarb drip. (8) Acute respiratory failure Is this a current diagnosis for this admission?: Yes Diagnosis Summary: 03/10/2019-patient this morning become less pronounced responsive lethargic hypotensive hypothermic and hypoxic. Rapid response was called she was intubated this morning. And transferred to ICU. Presently she is on SIMV tidal volume of 500 respiratory rate 18 oxygen 60% pulse ox right now is 96%. Chest x-ray this morning suggestive of pulmonary vascular congestion small bilateral pleural effusions. (9) Sepsis Is this a current diagnosis for this admission?: Yes Diagnosis Summary: 03/10/2019-patient is hypotensive hypothermic hypoxic with acute renal failure this morning WBC count of 15,000. Patient is made the criteria for sepsis. Blood cultures are negative so far. Patient is on Invanz. - Transfer Medications Home Medications: Glipizide [Glocotrol 10 Mg Tablet] 10 mg PO BID 03/07/19 Lisinopril [Prinivil] 20 mg PO DAILY 03/07/19 Transfer Medications: Current Medications Acetaminophen (Tylenol 325 Mg Tablet) 650 mg PO Q4HP PRN PRN Reason: FEVER >101 Stop: 04/06/19 18:41 Aspirin (Aspirin 325 Mg Tablet) 325 mg PO DAILY [facility] Stop: 04/07/19 10:59 Last Admin: 03/10/19 09:01 Dose: Not Given Documented by: Atorvastatin Calcium (Lipitor 10 Mg Tablet) 10 mg PO QHS [facility] Stop: 04/07/19 21:59 Last Admin: 03/09/19 21:37 Dose: Not Given Documented by: Dextrose (Dextrose Inj 50% Syringe (25 Gm/50 Ml)) 25 gm IV PRN PRN; Protocol PRN Reason: PER PROTOCOL Stop: 04/06/19 18:49 Dextrose (Dextrose Inj 50% Syringe (25 Gm/50 Ml)) 12.5 gm IV PRN PRN; Protocol PRN Reason: FOR BG 50-69 IN ALERT PATIENT Stop: 04/06/19 18:49 Enoxaparin Sodium (Lovenox Inj 80 Mg/0.8 Ml Disp.Syrin) 75 mg SUBCUT Q12 GISSEL Stop: 04/07/19 10:59 Last Admin: 03/09/19 22:45 Dose: 75 mg Documented by: Glucagon (Glucagen Inj 1 Mg Vial) 1 mg IM PRN PRN; Protocol PRN Reason: Evaluate for BG < 70 Stop: 04/06/19 18:49 Glucose (Glutose 40% Gel 15 Gm Tube) 15 gm PO PRN PRN; Protocol PRN Reason: FOR BG 50-69 IN ALERT PATIENT Stop: 04/06/19 18:49 Glucose (Glutose 40% Gel 15 Gm Tube) 30 gm PO PRN PRN; Protocol PRN Reason: FOR BG < 50 IN ALERT PATIENT Stop: 04/06/19 18:49 Ertapenem 1 gm/ Sodium (Chloride) 50 mls @ 100 mls/hr IV QHS GISSEL Stop: 03/14/19 21:59 Last Infusion: 03/09/19 23:15 Dose: Infused Documented by: Dopamine HCl/Dextrose (Dopamine Rtu 800 Mg-D5w 250 Ml (Adult) Premix) 800 mg in 250 mls @ 4.32 mls/hr IV CONTINUOUS PRN PRN Reason: THIS MED IS NOT "PRN" Stop: 04/09/19 04:52 Sodium Chloride (Nacl 0.9% 1000 Ml Iv Soln) 1,000 mls @ 250 mls/hr IV CONTIN UOUS PRN PRN Reason: THIS MED IS NOT "PRN" Stop: 04/09/19 06:08 Hard Fat/Phenylephrine 40 mg/ (Dextrose) 250 mls @ 0 mls/hr IV CONTINUOUS PRN; Protocol PRN Reason: THIS MED IS NOT "PRN" Stop: 04/09/19 06:09 Last Titration: 03/10/19 07:30 Dose: 160 mcg/min, 60 mls/hr Documented by: Midazolam HCl (Versed Rtu 50 Mg/100 Ml Premix Bag) 50 mg in 100 mls @ 0 mls/hr IV CONTINUOUS PRN; Protocol PRN Reason: THIS MED IS NOT "PRN" Stop: 03/17/19 08:05 Propofol (Diprivan Rtu 1000 Mg/100 Ml Inf.Bottle) 1,000 mg in 100 mls @ 2.304 mls/hr IV CONTINUOUS PRN; Protocol PRN Reason: THIS MED IS NOT "PRN" Stop: 04/09/19 08:18 Sodium Bicarbonate 150 meq/ (Dextrose) 1,000 mls @ 150 mls/hr IV CONTINUOUS PRN PRN Reason: THIS MED IS NOT "PRN" Stop: 04/09/19 08:34 Insulin Human Regular (Humulin R (Pyxis) Insulin 100 Unit/Ml 3ml) 0 - 30 unit SUBCUT Q6 GISSEL; Protocol Stop: 04/07/19 05:59 Last Admin: 03/10/19 07:39 Dose: Not Given Documented by: Metoprolol Tartrate (Lopressor Inj/Pf 5 Mg/5 Ml Sdv) 5 mg IV Q4HP PRN PRN Reason: SEE LABEL COMMENTS Stop: 04/07/19 09:59 Last Admin: 03/09/19 19:00 Dose: 5 mg Documented by: Morphine Sulfate (Morphine 10 Mg/Ml Inj) 0 mg IV Q2HP PRN; Protocol PRN Reason: Pain Per [facility] 5 point scale HD Stop: 03/14/19 22:02 Last Admin: 03/09/19 15:37 Dose: 5 mg Documented by: Ondansetron HCl (Zofran Inj/Pf 4 Mg/2 Ml Sdv) 4 mg IV Q8HP PRN PRN Reason: FOR NAUSEA/VOMITING Stop: 04/06/19 18:41 Pantoprazole Sodium (Protonix Iv Inj 40 Mg Vial) 40 mg IV Q12 GISSEL Stop: 03/10/19 19:34 Last Admin: 03/09/19 22:44 Dose: 40 mg Documented by: Sodium Chloride (Saline Flush 2.5 Ml Monoject Prefil Syrin) 2.5 ml IV Q8 GISSEL Stop: 04/06/19 19:59 Last Admin: 03/10/19 08:15 Dose: Not Given Documented by: - Allergies Allergies/Adverse Reactions: No Known Allergies Allergy (Unverified 11/07/11 11:42) Hospital Course Hospital Course: 68-year-old female admitted for sudden onset of abdominal pain, nausea and vomiting found to have abnormal gallbladder and acute pancreatitis at the time of admission surgical consult was requested their impression is patient does not need emergent surgery recommendation from them is was the acute pancreatitis is resolved gallbladder will be removed and patient was downgraded to IMCU this morning a rapid response was called patient found to be hypotensive hypothermic hypoxic acidotic she was promptly intubated and transferred to ICU. And patient's urinary output is also decreasing for the last 24 hours. Latest creatinine is 3.07 urinary output is around 215 to 24 hours. Presently on Invanz. So the case was discussed with the Dr. Montenegro ICU attending at [facility] he promptly agreed to take the patient for further management. Patient is condition is critical overall prognosis is poor. Physical Exam Vital Signs: Temp Pulse Resp BP Pulse Ox 97.3 F 113 H 22 H 103/41 L 96 03/10/19 03:03 03/10/19 03:03 03/10/19 09:07 03/10/19 09:07 03/10/19 07:36 Intake & Output 03/09/19 03/10/19 03/11/19 06:59 06:59 06:59 Intake Total 581 7947 38 Output Total 350 410 7 Balance 231 9737 31 Weight 76.8 kg 83.4 kg General appearance: PRESENT: other - Shunt is intubated under mechanical ventilation. Patient is on Versed drip. Head exam: PRESENT: atraumatic Eye exam: PRESENT: PERRLA Teeth exam: PRESENT: poor dentation Neck exam: ABSENT: carotid bruit, JVD, lymphadenopathy, thyromegaly Respiratory exam: PRESENT: decreased breath sounds Cardiovascular exam: PRESENT: tachycardia GI/Abdominal exam: PRESENT: normal bowel sounds, soft, other - G-tube in place.. ABSENT: distended, guarding, mass, organolmegaly, rebound, tenderness Rectal exam: PRESENT: deferred Gentrourinary exam: PRESENT: indwelling catheter Neurological exam: PRESENT: other - Will to do the neuro examination because patient is intubated under sedation. Results Laboratory Results: 03/10/19 05:48 03/10/19 05:48 03/09/19 03/09/19 03/09/19 10:22 10:50 13:57 WBC RBC Hgb Hct MCV MCH MCHC RDW Plt Count Carbonic Acid HCO3/H2CO3 Ratio ABG pH ABG pCO2 ABG pO2 ABG HCO3 ABG O2 Saturation ABG Base Excess FiO2 Sodium 145.7 H 146.6 H Potassium 5.9 H 5.2 H Chloride 116 H 120 H Carbon Dioxide 17 L 14 L Anion Gap 13 13 BUN 60 H 59 H Creatinine 2.51 H 2.36 H Est GFR ( Amer) 23 L 25 L Est GFR (Non-Af Amer) 19 L 21 L Glucose 308 H 256 H Lactic Acid Calcium 6.6 L* 6.6 L* Total Bilirubin 0.8 0.8 AST 299 H 314 H ALT 523 H 549 H Alkaline Phosphatase 174 H 206 H Total Protein 5.5 L 5.4 L Albumin 2.7 L 2.7 L Lipase 8452.9 H Stool Occult Blood POSITIVE 03/09/19 03/10/19 03/10/19 14:35 05:44 05:48 WBC RBC Hgb Hct MCV MCH MCHC RDW Plt Count Carbonic Acid 1.54 H HCO3/H2CO3 Ratio 8:1 ABG pH 7.05 L* ABG pCO2 51.3 H ABG pO2 67.2 L ABG HCO3 13.7 L ABG O2 Saturation 83.6 L ABG Base Excess -16.4 FiO2 15L Sodium Potassium Chloride Carbon Dioxide Anion Gap BUN Creatinine Est GFR ( Amer) Est GFR (Non-Af Amer) Glucose Lactic Acid 3.8 H 2.6 H Calcium Total Bilirubin AST ALT Alkaline Phosphatase Total Protein Albumin Lipase Stool Occult Blood 03/10/19 03/10/19 03/10/19 05:48 05:48 07:35 WBC 15.5 H RBC 3.83 Hgb 10.8 L D Hct 34.0 L MCV 89 MCH 28.3 MCHC 31.8 L RDW 15.4 H Plt Count 172 Carbonic Acid 0.99 L HCO3/H2CO3 Ratio 11:1 ABG pH 7.14 L* ABG pCO2 32.9 L ABG pO2 98.1 ABG HCO3 10.9 L ABG O2 Saturation 95.4 ABG Base Excess -17.0 FiO2 60% Sodium 148.2 H Potassium 5.4 H Chloride 123 H Carbon Dioxide 14 L Anion Gap 11 BUN 65 H Creatinine 3.07 H Est GFR ( Amer) 18 L Est GFR (Non-Af Amer) 15 L Glucose 178 H Lactic Acid Calcium 5.9 L* Total Bilirubin 0.7 AST 233 H ALT 356 H Alkaline Phosphatase 159 H Total Protein 4.6 L Albumin 2.2 L Lipase 6236.1 H Stool Occult Blood 03/07/19 03/07/19 03/07/19 13:52 19:19 19:19 Creatine Kinase 87 CK-MB (CK-2) 0.78 Troponin I < 0.012 < 0.012 NT-Pro-B Natriuret Pep 03/08/19 03/08/19 03/08/19 01:22 01:22 09:18 Creatine Kinase 94 104 CK-MB (CK-2) 1.34 Troponin I 0.034 NT-Pro-B Natriuret Pep 03/08/19 03/08/19 03/08/19 09:18 13:07 13:07 Creatine Kinase 116 CK-MB (CK-2) 2.12 1.78 Troponin I 0.059 0.054 NT-Pro-B Natriuret Pep 669 03/08/19 03/08/19 03/09/19 18:56 18:56 01:12 Creatine Kinase 150 H 153 H CK-MB (CK-2) 2.24 Troponin I 0.046 NT-Pro-B Natriuret Pep 05/05/19 01:12 Creatine Kinase CK-MB (CK-2) 2.23 Troponin I 0.052 NT-Pro-B Natriuret Pep Impressions: Abdomen/Pelvis CT 03/07/19 00:00 IMPRESSION: Findings compatible with acute pancreatitis. Cholelithiasis. Abdomen Ultrasound 03/07/19 16:17 IMPRESSION: Nonshadowing gallstones versus moderate amount of endoluminal sludge. Increased gallbladder wall thickness, 4-5 mm. Trace amount of fluid in Farrell's pouch. Consider surgical consultation. Chest X-Ray 03/10/19 06:32 IMPRESSION: 1. Endotracheal tube in appropriate position. 2. NG tube with tip at the level of the gastroesophageal junction. Recommend advancing 10 to 15 cm. 3. Cardiomegaly with pulmonary vascular congestion and likely small bilateral pleural effusions. Underlying pneumonic process not excluded. Continued follow-up recommended. Plan Discharge Plan: Patient is going to be transferred to [facility]. Time Spent: Greater than 30 Minutes
[2019-03-10] MEDS ORDERED: ENOXAPARIN SODIUM INJ 80 MG/0.8 ML DISP.SYRIN SUBCUT SCH (10:00)
[2019-03-10 10:19] VITALS: BP 92/58
[2019-03-10] MEDS: PANTOPRAZOLE SODIUM 40 MG VIAL IV SCH (10:26)
[2019-03-10] MEDS ORDERED: DEXTROSE 5%-WATER 250 ML with NOREPINEPHRINE BITARTRATE 4 MG IV PRN ×2 (10:58)
[2019-03-10] MEDS: NOREPINEPHRINE BITARTRATE INJ/PF 4 MG/4 ML SDV IV ONE ×2 (11:02→11:06)
== END 2019-03-10 11:20 | disposition short-term general hospital (02) | DRG 438 ==
LOC: ER 12:54 → EH 18:51 → ICU 21:30 → 3W 03-08 16:33 → ICU 03-10 05:46
PROVIDERS: ADMIT Internal Medicine; ATTEND Internal Medicine
PROC: 5A1935Z Respiratory Ventilation, Less than 24 Consecutive Hours (ICD-10-PCS; principal; 2019-03-10)
PROC: 0BH17EZ Insertion of Endotracheal Airway into Trachea, Via Natural or Artificial Opening (ICD-10-PCS; 2019-03-10)
PROC: 05HN33Z Insertion of Infusion Device into Left Internal Jugular Vein, Percutaneous Approach (ICD-10-PCS; 2019-03-10)
DX: K85.10 Biliary acute pancreatitis without necrosis or infection (principal); A41.9 Sepsis, unspecified organism; N17.0 Acute kidney failure with tubular necrosis; J96.01 Acute respiratory failure with hypoxia; E87.2 Acidosis; K81.0 Acute cholecystitis; E11.22 Type 2 diabetes mellitus with diabetic chronic kidney disease; E87.5 Hyperkalemia; E83.51 Hypocalcemia; R00.0 Tachycardia, unspecified; N18.3 Chronic kidney disease, stage 3 (moderate); E78.5 Hyperlipidemia, unspecified; E66.9 Obesity, unspecified; I12.9 Hypertensive chronic kidney disease with stage 1 through stage 4 chronic kidney disease, or unspecified chronic kidney disease; Z79.84 Long term (current) use of oral hypoglycemic drugs; Z79.82 Long term (current) use of aspirin
CPT/HCPCS: 36415; 36600; 71045; 74177; 76705; 80053; 80074; 81001; 82272; 82550; 82553; 82803; 82962; 83036; 83605; 83690; 83735; 83880; 84443; 84484; 85025; 85027; 85610; 87040; 87086; 93005; 93010; 94002; 96361; 96374; 96375; 96376; 99285; J0610; J0696; J1265; J1335; J1650; J1815; J2250; J2270; J2370; J2405; J2704; J3490; J7030; J7060; S0164